=== PATIENT | male | born 1960 | race Caucasian/White ===

== ENCOUNTER 2017-09-08 23:38 | Inpatient (IN) | payer OTHER ==
[~2017-09-08] VITALS: Ht 190.5 cm; Wt 148.7 kg
[~2017-09-08 23:38] MED LIST: CIPR1TAB10 PO; HYDR-5688 PO; METR-163 PO; MULT-506 PO; PRLSR20 PO
[2017-09-08] MEDS ORDERED: ONDANSETRON INJ 2 MG/ML 2 ML VIAL IV STA (23:53)
[2017-09-08] MEDS ORDERED: MoRPHine SULFATE 4 MG/ML 1 ML CARP\\VIAL IV STA (23:53)
[2017-09-09] VITALS (9 sets, daily range): BP systolic 114–142; BP diastolic 72–82; PULSE 52–77; TEMP 36.3–36.7; O2SAT 94–97; Ht 190.5 cm; Wt 148.7 kg
[2017-09-09] MEDS ORDERED: OPTIRAY 320 IV PRN (00:15)
[2017-09-09 00:33] LABS: BASO % 0.1 %; BASO ABS # 0.01 K/uL (0-0.2); COMPLETE YES; HEMATOCRIT 44.1 % (42-52); IG% 0.3 %; LYMPH % 38.8 %; LYMPH ABS # 2.71 K/uL (1.2-3.4); MEAN CELL VOLUME 89.5 fL (80-100); MEAN CORPUSCULAR HEMOGLOBIN 30.4 pg (25-34); MEAN PLATELET VOLUME 11.6 fL (7.4-10.4); MONO % 10.3 %; NEUT % 48.5 %; PLATELET COUNT 161 K/uL (130-400); RED BLOOD COUNT 4.93 M/uL (4.7-6.1); WHITE BLOOD COUNT 6.98 K/uL (4.8-10.8)
[2017-09-09] MEDS ORDERED: HYDROmorphone INJ 2 MG/ML SYR/VIAL IV STA (00:48)
[2017-09-09] MEDS ORDERED: HYDROmorphone INJ 1 MG/ML SYR ONE (00:48)
[2017-09-09 00:52] LABS: BUN/CREATININE RATIO 18.1 (10-20); CREATININE 0.87 mg/dl (0.60-1.40); POTASSIUM 3.7 mmol/L (3.5-5.1)
[2017-09-09] MEDS ORDERED: ONDANSETRON INJ 2 MG/ML 2 ML VIAL IV PRN ×2 (02:15→03:15)
[2017-09-09] MEDS ORDERED: HEPARIN SOD 5000 UNIT/0.5 ML CARP SQ SCH (02:15)
--- NOTE | 2017-09-09 02:28 | Surgery Consultation ---
Consultation Date of Consultation: Sep 09, 2017. Attending Physician: History of Present Illness pt is a 56 year old male who presents to ER for 8 hours acute abdominal pain with nausea, no vomiting, the pain located at umbilical area, pt had sigmoid colon resection for diverticulitis [place] [facility] [place], last 6 months pt develops incisional hernia, the hernia is getting bigger, today the hernia is not reducible, last BM yesterday morning, pt denies fever, no diarrhea, Past Medical/Surgical History Medical Problems: (1) Abdominal pain, left lower quadrant Status: Acute Social History Smoking Status: Never Smoker Smokeless Tobacco Use: No Alcohol Use: occasionally Drug Use: none Marital Status: Occupation Status: employed Allergies Coded Allergies: No Known Allergies (Unverified , 09/09/17) Home Medications Scheduled Multivitamin (Multivitamin), 1 TABLET PO DAILY Omeprazole (Prilosec), 20 MG PO DAILY Current Inpatient Medications Current Inpatient Medications Medications (Trade) Dose Ordered Sig/Ryder Route Start Time Stop Time Status Last Admin Dose Admin Ioversol (Optiray 320) 125 ml UD PRN IV 09/09/17 00:15 09/13/17 00:14 Review of Systems Constitutional: No fever, No chills, No sweats, No weight loss, No weakness, No fatigue, No problem reported Eyes: No worsening of vision, No eye pain, No redness, No discharge, No diplopia, No problem reported ENT: No hearing loss, No unusual epistaxis, No nasal symptoms, No sore throat, No tinnitus, No dental problems, No trouble swallowing, No problem reported Respiratory: No cough, No sputum, No wheezing, No shortness of breath, No dyspnea on exertion, No dyspnea at rest, No hemoptysis, No problem reported Cardiovascular: No chest pain, No orthopnea, No PND, No edema, No claudication , No palpitations, No problem reported Abdomen: + pain, + nausea, + problem reported (sigmoid colon resection) Genitourinary - Male: No hematuria, No dysuria, No urinary frequency, No urinary urgency, No urinary hesitancy, No urinary retention, No urinary incontinence, No penile discharge, No lesions, No impotence, No problem reported Neurologic: No memory loss, No paralysis, No weakness, No numbness/tingling, No vertigo, No balance problems, No problem reported Psychiatric: No depression symptoms, No anhedonism, No anxiety, No insomnia, No substance abuse, No problem reported Endocrine: No fatigue, No excessive thirst, No excessive urination, No problem reported Hematologic / Lymphatic: No abnormal bleeding/bruising, No clotting problems, No swollen lymph nodes, No night sweats, No problem reported Physical Exam Date Time Temp Pulse Resp B/P (MAP) Pulse Ox O2 Delivery O2 Flow Rate FiO2 09/08/17 23:45 36.5 60 20 136/91 96 Room Air General Appearance: WD/WN, no apparent distress Head: normocephalic Eyes: normal inspection ENT: normal ENT inspection Neck: supple, no JVD Respiratory/Chest: chest non-tender, lungs clear, normal breath sounds, no respiratory distress Cardiovascular: regular rate, rhythm, no edema, no gallop, no JVD, no murmur Abdomen/GI: normal bowel sounds, soft, no organomegaly, no pulsatile mass, + tenderness (the incisonal hernia located at umbilical area, tenderness, thin skin, the hernia size about 3x4cm, the hernia is not reducible,), + distended Extremities/Musculoskelatal: normal inspection, no calf tenderness, normal capillary refill Neurologic/Psych: no motor/sensory deficits, alert, normal mood/affect Skin: normal color, warm/dry, no rash Laboratory Results Last 24 Hours Test 09/09/17 00:29 Bedside Lactic Acid Venous 0.65 mmol/L Assessment & Plan CT Scan- incisional hernia with contain small bowel, with bowel obstruction. Assessment: pt is a 56 year old male who presents to ER with 8 hours acute abdominal pain with nausea, CT scan- incisional hernia with contain small bowel , and bowel obstruction, IMP: incarcerated incisional hernia Plan, I recommend to do open repair incarcerated incisional hernia, possible mesh, bowel resection, stoma, D/W benefits, risks and alternatives of the procedure, the risks- infection, bleeding, injury bowel, hernia recurrence, seroma.AR, DVT, pt understood, he agrees with the surgery, I answered all questions.
--- NOTE | 2017-09-09 02:41 | History and Physical ---
History & Physical Date & Time of Service: Sep 09, 2017 at 02:35 Chief Complaint: Stomach Pain Primary Care Physician: No Doctor, Assigned History of Present Illness Source: patient, clinic records, hospital records This is a 56 year old obese male with a PMH of recurrent diverticulitis s/p sigmoid anterior resection presents secondary to abdominal pain. As per patient he had developed a hernia around the umbilicus. He was to see Dr. Galvez, general surgery, as an outpatient to have this repaired, but due to scheduling issues never had this scheduled. He developed the abdominal pain acutely hours prior to arrival. He denies fevers/chills, denies nausea/vomiting. Abdominal pain persists even after narcotic pain medications. Social History Smoking Status: Never Smoker Smokeless Tobacco Use: No Alcohol Use: occasionally Drug Use: none Marital Status: Occupational Status: employed Multi-Drug Resistant Organisms History of MDRO: No Allergies Coded Allergies: No Known Allergies (Unverified , 09/09/17) Home Medications Scheduled Multivitamin (Multivitamin), 1 TABLET PO DAILY Omeprazole (Prilosec), 20 MG PO DAILY Review of Systems Constitutional: No fever, No chills, No weakness Respiratory: No cough, No sputum, No shortness of breath, No dyspnea on exertion Cardiovascular: No chest pain, No edema, No palpitations Abdomen: + pain, No nausea, No vomiting, No diarrhea, No constipation Genitourinary - Male: No hematuria, No dysuria, No urinary frequency, No urinary urgency Neurologic: No weakness, No balance problems Psychiatric: No depression symptoms, No anxiety, No insomnia Endocrine: No fatigue Hematologic / Lymphatic: No abnormal bleeding/bruising Integumentary: No rash Allergic / Immunologic: No environmental allergies, No seasonal allergies Physical Exam Vital Signs Date Time Temp Pulse Resp B/P (MAP) Pulse Ox O2 Delivery O2 Flow Rate FiO2 09/09/17 01:45 60 18 120/66 94 Room Air 09/08/17 23:45 36.5 60 20 136/91 96 Room Air General Appearance: no apparent distress, + obese Head: normocephalic, atraumatic Eyes: normal inspection ENT: hearing grossly normal Respiratory/Chest: chest non-tender, lungs clear, normal breath sounds, no respiratory distress, no accessory muscle use Cardiovascular: regular rate, rhythm, no edema, no murmur Abdomen/GI: non tender, + abnormal bowel sounds (diminished bowel sounds), + hernia (non-reducible and tender) Extremities/Musculoskelatal: normal inspection, no calf tenderness, normal capillary refill, no pedal edema, normal range of motion Neurologic/Psych: no motor/sensory deficits, alert, normal mood/affect Skin: normal color Lymphatic: no adenopathy Diagnostics Laboratory Results Results Past 24 Hours Test 09/09/17 00:29 Range/Units Bedside Lactic Acid Venous 0.65 0.90-1.70 mmol/L Diagnostic Radiology CT was performed in the ED, showing the hernia with small bowel contained within it and a small bowel obstruction. Impression Assessment and Plan This is a 56 year old obese male with a PMH of recurrent diverticulitis s/p sigmoid anterior resection presents secondary to abdominal pain Incisional Hernia non-reducible and tender NPO, IVFs, morphine PRN for pain, Zofran PRN for nausea continue PPI general surgery consulted plan for hernia repair in the OR DVT ppx SCDs FULL CODE VTE Prophylaxis VTE Risk Assessment Done? Y/N: Yes Risk Level: Moderate
[2017-09-09] MEDS ORDERED: PROPOFOL IV EMULSION 10 MG/ML 20 ML VIAL IV ONE (02:52)
[2017-09-09] MEDS ORDERED: LIDOCAINE HCL 2% 2 ML VIAL (20MG/ML) ONE (02:52)
[2017-09-09] MEDS ORDERED: MIDAZOLAM HCL 1 MG/ML 2ML VIAL ONE (02:53)
[2017-09-09] MEDS ORDERED: LIDOCAINE HCL 1% 20 ML VIAL ONE (02:53)
[2017-09-09] MEDS ORDERED: BACITRACIN OINT 15 GM TUBE ONE (02:53)
[2017-09-09] MEDS ORDERED: FENTANYL CITRATE INJ 50 MCG/1 ML 2 ML VIAL ONE ×2 (02:53→05:04)
[2017-09-09] MEDS ORDERED: BUPIVACAINE 0.5 % 5 MG/1 ML MPF 30ML VIAL ONE (02:54)
--- NOTE | 2017-09-09 03:00 | EMERGENCY ROOM VISIT NOTE ---
History First contact with patient: 23:42 Chief Complaint: ABDOMINAL PAIN Stated Complaint: STOMACH PAIN Nursing Triage Summary: mid abdominal pain r/t hernia History of Present Illness The patient is a 56 year old male who presents to the Emergency Room with complaints of nausea with periumbilical pain for the past several hours. Patient has a hernia to this area. He's had bowel resection secondary to diverticulitis. He describes the pain as throbbing, ranging in severity 8 out of 10. Nothing makes it better or worse. It does not radiate. Last bowel movement was lunchtime. Patient denies chest pain, dyspnea, fever, chills, vomiting, diarrhea, back pain, urinary symptoms. No history of similar symptoms in the past. Review of Systems See HPI for pertinent positives & negatives. A total of 10 systems reviewed and were otherwise negative. Past Medical/Surgical History Medical Problems: (1) Diverticulitis (2) SBO (small bowel obstruction) (3) Umbilical hernia Surgical Problems: (1) Giant Cell Tumor Tendon (2) Status post rotator cuff repair Bowel resection Social History Smoking Status: Never Smoker Smokeless Tobacco Use: No Alcohol Use: occasionally Drug Use: none Marital Status: Occupation Status: employed Current/Historical Medications Scheduled Multivitamin (Multivitamin), 1 TABLET PO DAILY Omeprazole (Prilosec), 20 MG PO DAILY Allergies Coded Allergies: No Known Allergies (Unverified , 09/09/17) Physical Exam Vital Signs Date Time Temp Pulse Resp B/P (MAP) Pulse Ox O2 Delivery O2 Flow Rate FiO2 09/09/17 01:45 60 18 120/66 94 Room Air 09/08/17 23:45 36.5 60 20 136/91 96 Room Air Physical Exam VITALS: Vitals are noted on the nurse's note and reviewed by myself. Vital signs stable. GENERAL: White male in obvious pain, in no acute distress, nondiaphoretic, well- developed well-nourished. SKIN: The skin was without rashes, erythema, edema, or bruising. There is no tenting of the skin. Capillary reflex less than 2 seconds. HEAD: Normocephalic atraumatic. EARS: External auditory canals clear EYES: Pupils equal round and reactive to light and accommodation. Conjunctivae without injection, sclerae without icterus. Extraocular movements intact. NOSE: Patent, turbinates without inflammation or discharge. MOUTH: Mucous membranes moist. Pharynx without erythema or exudate. Uvula midline. Airway patent. Tongue does not deviate. NECK: Supple without nuchal rigidity. No lymphadenopathy. No thyromegaly. Cervical spine is nontender. No JVD. HEART: Regular rate and rhythm LUNGS: Clear to auscultation bilaterally without wheezes, rales or rhonchi. No dullness to percussion. No retractions or accessory muscle use. ABDOMEN: Positive bowel sounds x 4. Normal tympanic percussion. Soft, protuberant, obese, tender to palpation over umbilicus and unable to reduce the hernia, without masses or organomegaly. Soler sign negative. No guarding or rebound tenderness. No CVA tenderness MUSCULOSKELETAL: No muscle atrophy, erythema, noted. NEURO: Patient was alert and oriented to person place and time. Normal sensation to light and sharp touch. No focal neurological deficits. Medical Decision & Procedures Laboratory Results 09/08/17 00:20 Red Blood Count 4.93, Mean Corpuscular Volume 89.5, Mean Corpuscular Hemoglobin 30.4, Mean Corpuscular Hemoglobin Concent 34.0, Mean Platelet Volume 11.6, Neutrophils (%) (Auto) 48.5, Lymphocytes (%) (Auto) 38.8, Monocytes (%) (Auto) 10.3, Eosinophils (%) (Auto) 2.0, Basophils (%) (Auto) 0.1, Neutrophils # (Auto ) 3.38, Lymphocytes # (Auto) 2.71, Monocytes # (Auto) 0.72, Eosinophils # (Auto ) 0.14, Basophils # (Auto) 0.01 09/08/17 00:20 Test 09/08/17 00:20 09/09/17 00:29 White Blood Count 6.98 K/uL (4.8-10.8) Red Blood Count 4.93 M/uL (4.7-6.1) Hemoglobin 15.0 g/dL (14.0-18.0) Hematocrit 44.1 % (42-52) Mean Corpuscular Volume 89.5 fL (80-100) Mean Corpuscular Hemoglobin 30.4 pg (25-34) Mean Corpuscular Hemoglobin Concent 34.0 g/dl (32-36) Platelet Count 161 K/uL (130-400) Mean Platelet Volume 11.6 fL (7.4-10.4) Neutrophils (%) (Auto) 48.5 % Lymphocytes (%) (Auto) 38.8 % Monocytes (%) (Auto) 10.3 % Eosinophils (%) (Auto) 2.0 % Basophils (%) (Auto) 0.1 % Neutrophils # (Auto) 3.38 K/uL (1.4-6.5) Lymphocytes # (Auto) 2.71 K/uL (1.2-3.4) Monocytes # (Auto) 0.72 K/uL (0.11-0.59) Eosinophils # (Auto) 0.14 K/uL (0-0.5) Basophils # (Auto) 0.01 K/uL (0-0.2) RDW Standard Deviation 41.6 fL (36.4-46.3) RDW Coefficient of Variation 12.9 % (11.5-14.5) Immature Granulocyte % (Auto) 0.3 % Immature Granulocyte # (Auto) 0.02 K/uL (0.00-0.02) Anion Gap 7.0 mmol/L (3-11) Est Creatinine Clear Calc Drug Dose 151.3 ml/min Estimated GFR () 113.4 Estimated GFR (Non- 97.8 BUN/Creatinine Ratio 18.1 (10-20) Calcium Level 9.0 mg/dl (8.5-10.1) Total Bilirubin 0.6 mg/dl (0.2-1) Direct Bilirubin 0.1 mg/dl (0-0.2) Aspartate Amino Transf (AST/SGOT) 26 U/L (15-37) Alanine Aminotransferase (ALT/SGPT) 46 U/L (12-78) Alkaline Phosphatase 76 U/L (45-117) Total Protein 7.8 gm/dl (6.4-8.2) Albumin 3.8 gm/dl (3.4-5.0) Bedside Lactic Acid Venous 0.65 mmol/L (0.90-1.70) Medications Administered Medications (Trade) Dose Ordered Sig/Ryder Route Start Time Stop Time Status Last Admin Dose Admin Morphine Sulfate (MoRPHine SULFATE INJ) 4 mg NOW STAT IV 09/08/17 23:53 09/09/17 00:02 DC 09/09/17 00:17 4 MG Ondansetron HCl (Zofran Inj) 4 mg NOW STAT IV 09/08/17 23:53 09/09/17 00:02 DC 09/09/17 00:17 4 MG Hydromorphone HCl (Dilaudid Inj) 1 mg STK-MED ONCE .ROUTE 09/09/17 00:48 09/09/17 00:49 DC 09/09/17 00:50 1 MG ED Course Prior records/ancillary studies reviewed. Triage Nursing notes reviewed. The patient's history was concerning for abdominal pain. Differential diagnosis: Etiologies such as strangulated hernia, incarcerated hernia, umbilical hernia, incisional hernia, appendicitis, diverticulitis, PUD, biliary pathology, UTI, pancreatitis, obstruction, mesenteric ischemia, aortic pathology, infections, inflammatory bowel disease, renal colic, as well as others were entertained. Physical examination findings: As above. ER treatment provided: Morphine, Dilaudid, Zofran On reassessment the patient felt better. Diagnostics interpreted by me: The labs revealed stable H&H. Negative lactic acid Imaging studies: CT ABDOMEN & PELVIS With Contrast: Comparison: CT abdomen and pelvis 07/27/13. Moderate sized periumbilical hernia containing a short segment of distal small bowel. There is focal mild dilatation of the upstream small bowel with fecalization of the contents, and relative decompression of distal small bowel. Small bowel is otherwise normal caliber. Differential includes chronic stasis or low-grade small bowel obstruction. No free air. Minimal free fluid in the pelvis. Anastomotic sutures in the sigmoid colon. Small right renal cyst. Liver, gallbladder, pancreas, spleen, and adrenals are unremarkable. Prostate is enlarged. Small hiatal hernia. Bilateral pars defects of L5 with anterolisthesis of L5 on S1. Radiologist: Steven Stern MD Consultation: A consultation was placed with the surgeon Dr. Galvez and will evaluate the patient and taken to the OR for incarcerated hernia. Dr. Esqueda was consulted and will admit the patient medically per Dr Bacon request. The case was discussed and diagnostics were reviewed. The patient was evaluated in the ER for further treatment. Exam and history seem consistent with bowel obstruction secondary to incarcerated hernia. Patient will be taken to the OR by the surgeon. He was placed nothing by mouth. His pain was managed. Dr. Galvez requested that medicine admit the patient. Medicine was then paged for admission. Please see their dictations for further information regarding the treatment plan. Patient had a negative lactic acid. No leukocytosis. Stable H&H. By the evaluation outlined above emergent etiologies such as appendicitis, diverticulitis, PUD, biliary pathology, UTI, pancreatitis, mesenteric ischemia , aortic pathology, infections, inflammatory bowel disease, renal colic, as well as others were deemed relatively unlikely. The pt informed about the findings as listed above. All questions were answered and pleased with the treatment. case reviewed with my Attending. Medical Decision As above Impression Primary Impression: Incarcerated incisional hernia Departure Information Dispostion Being Evaluated By Surgeon Condition FAIR Referrals No Doctor, Assigned (PCP) Patient Instructions [facility]
[2017-09-09] MEDS ORDERED: HYDROmorphone INJ 2 MG/ML SYR/VIAL IV PRN (03:15)
[2017-09-09] MEDS ORDERED: EpHEDrine SULFATE INJ 50 MG/ML AMP IV PRN (03:15)
[2017-09-09] MEDS ORDERED: PHENYLEPHRINE 100MCG/ML 5ML SYR IV PRN (03:15)
[2017-09-09] MEDS ORDERED: ATROPINE SULFATE 0.1 MG/ML 5ML SYR IV PRN (03:15)
--- NOTE | 2017-09-09 03:45 | History & Physical Bridge Note ---
H&P Re-Evaluation Bridge Note: I have examined the patient, reviewed the History & Physical and in the interval since the performance of the History & Physical I have noted the following changes of clinical significance: No changes noted
[2017-09-09] MEDS ORDERED: CEFAZOLIN SOD 2000MG/10 ML IV PUSH IV ONE (04:00)
[2017-09-09] MEDS ORDERED: EpHEDrine SULFATE 50MG/5ML SYR ONE (04:29)
[2017-09-09] MEDS ORDERED: ROCURONIUM BROMIDE 10 MG/ML 5 ML VIAL IV ONE (04:30)
--- NOTE | 2017-09-09 05:24 | [facility] Post Operative Brief Note ---
Immediate Operative Summary Operative Date Sep 09, 2017. Pre-Operative Diagnosis Incarcerated incisional hernia Post-Operative Diagnosis Incarcerated incisional hernia Procedure(s) Performed Open Incisional Hernia Repair with Mesh Surgeon Dr. Galvez Cnc Wood Lathe Operator Surgeon(s) instructor adjunct surgical technician Estimated Blood Loss 10ml Findings incarcerated incisional hernia Fluids (cc crystalloids) 1400ml Specimens A: Incisional Hernia Sac Drains none Anesthesia general Complication(s) None Disposition Recovery Room / PACU
--- NOTE | 2017-09-09 05:45 | Anesthesiology Progress Note ---
Anesthesia Post Op Note Date & Time Sep 09, 2017 at 05:45 Vital Signs Pain Intensity: 5.0 Vital Signs Past 12 Hours Date Time Temp Pulse Resp B/P (MAP) Pulse Ox O2 Delivery O2 Flow Rate FiO2 09/09/17 03:03 50 14 125/74 95 Room Air 09/09/17 01:45 60 18 120/66 94 Room Air 09/08/17 23:45 36.5 60 20 136/91 96 Room Air Notes Mental Status: alert / awake / arousable, participated in evaluation Pt Amnestic to Procedure: Yes Nausea / Vomiting: adequately controlled Pain: adequately controlled Airway Patency, RR, SpO2: stable & adequate BP & HR: stable & adequate Hydration State: stable & adequate Anesthetic Complications: no major complications apparent
[2017-09-09] MEDS ORDERED: SODIUM CHLORIDE 0.9% 1000ML 1,000 ML IV SCH (06:30)
--- NOTE | 2017-09-09 06:56 | DIAGNOSTIC IMAGING REPORT ---
ABD/PELVIS IV CONTRAST ONLY CT DOSE: 2086.56 mGy.cm HISTORY: Pain severe periumbilcal pain with hernia, ? incarcerated TECHNIQUE: Multiaxial CT images of the abdomen and pelvis were performed following the use of intravenous contrast. A dose lowering technique was utilized adhering to the principles of ALARA. COMPARISON STUDY: 12/23/2015 FINDINGS: Lung bases are clear. Liver spleen and pancreas are uniform. Kidneys are negative for hydronephrosis. There is a periumbilical hernia containing a containing loop of bowel. This is a maximum transaxial dimension of 4.5 cm. There is no significant wall thickening pneumatosis or significant obstructive characteristics. There is stretching minimal reactive ileus. Abdominal aorta is normal in course and caliber. Bladder is midline. There is no free fluid within the pelvic cul-de-sac. IMPRESSION: 1. Periumbilical hernia containing a short segment loop of bowel 2. Maximum transaxial dimension is 4.5 cm. 3. No evidence for obstructive characteristics. 4. Mild nonobstructive reactive ileus. The above report was generated using voice recognition software. It may contain grammatical, syntax or spelling errors. Electronically signed by: Imtiaz Chase M.D. 09/09/2017 6:55 AM Dictated Date/Time: 09/09/2017 6:48 AM
[2017-09-09] MEDS: MoRPHine SULFATE 2 MG/ML CARP IV PRN ×2 (07:43→13:56)
[2017-09-09] MEDS ORDERED: PANTOprazole SOD 40 MG TAB PO SCH (09:00)
--- NOTE | 2017-09-09 10:16 | OPERATIVE REPORT ---
DATE OF OPERATION: 09/09/2017 PREOPERATIVE DIAGNOSIS: Incarcerated incisional hernia. POSTOPERATIVE DIAGNOSIS: Same. OPERATION: Open repair incarcerated incisional hernia with mesh. SURGEON: Beatriz Galvez MD. ANESTHESIA: General. ESTIMATED BLOOD LOSS: About 10 mL. IV FLUIDS: 1400 mL. FINDINGS: Incarcerated incisional hernia. COMPLICATIONS: None. INDICATIONS FOR THE PROCEDURE: This is a 56-year-old gentleman who presented to the ED with 8 hours of acute abdominal pain and the patient had a sigmoid colon resection for diverticulitis in the past, now the patient developed incarcerated incisional hernia. The patient had a CT scan, conforming the diagnosis. We decided to take the patient to the OR to open repair of incarcerated incisional hernia, possible with a mesh, possible bowel resection and stoma. I did talk to the patient about the benefit, risk and alternate procedure. I indicated the risks may include, but not limited such as bleeding, infection, injury to bowel, hernia recurrence, mesh related complications, DVT, and myocardial infarction. The patient understands. He signed informed consent and I answered all questions. DETAILS OF PROCEDURE: We brought the patient to the OR and put the patient in the supine position. The patient received SCD on bilateral legs to prevent DVT. Also, the patient received 2 grams Ancef IV for prophylactic antibiotic. The patient received insertion of Fuchs catheter after general anesthesia intubation and then, the patient's abdomen was prepped and draped in routine sterile fashion. After timeout, I made an incision just below the umbilical and mobilized the hernia sac and we completely removed the hernia sac contents. Small bowel back to the abdominal cavity and the hernia neck size of about 2 x 3 cm. We removed the hernia sac and then I used a 6.4 x 6.4 cm mesh to close the hernia. I used a #1 Ethibond suture to the mesh at 3 to 5 o'clock and one to 3 o'clock, one to 11 to 9 o'clock and 9 to 7 o'clock and 7 to 5 o'clock. All sutures tied and the mesh was set nicely without tension and I used a 2-0 Vicryl to close the fascial layer interruptedly. Then, we used a 2-0 Vicryl to reattach the umbilicus back to the original normal location and then I used 2-0 Vicryl to close subcutaneous layer interruptedly and I used 4-0 Vicryl to close skin continuous running and we put a dressing on. The patient tolerated the procedure well. All instrument, needle and sponge count correct x2 at the end of case and I removed the Fuchs catheter. The patient extubated in the OR and transferred to recovery room in stable condition. I attest to the content of the Intraoperative Record and any orders documented therein. Any exceptions are noted below. JANA
--- NOTE | 2017-09-09 12:26 | Discharge Instructions ---
Discharge Instructions Date of Service Sep 09, 2017. Admission Reason for Admission: Sbo, Umbilical Hernia Discharge Discharge Diagnosis / Problem: Incarcerated incisional hernia Discharge Goals Goal(s): Decrease discomfort, Improve function Activity Recommendations Activity Limitations: as noted below No heavy lifting over 10 pounds for 4 weeks No strenuous activity until cleared by surgeon No submerging incision underwater for 2 weeks (no bathing, swimming, or hot tubs ) No driving while taking narcotic pain medication or until you are pain free . Instructions / Follow-Up Instructions / Follow-Up You may shower in 4 days, sponge bath and wash hair in meantime. Try to keep dressing clean and dry Keep steri strips on incision for 7 days and then remove. They may fall off on their own that is okay Walking and light activity is encouraged You will be given prescription for Percocet as needed for pain . You may take extra strength Ibuprofen in between Percocet as needed for pain. Do not take Tylenol in between Percocet doses as Percocet has Tylenol in it Follow-up in surgical office in 1 week , please call office at [phone] to make an appointment You may need to take OTC stool softener (such as Colace) if you develop constipation to prevent any straining Current Hospital Diet Patient's current hospital diet: Regular Diet Discharge Diet Recommended Diet: Regular Diet Procedures Procedures Performed: Open Incisional Hernia Repair with Mesh Pending Studies Studies pending at discharge: no Medical Emergencies . Who to Call and When: Medical Emergencies: If at any time you feel your situation is an emergency, please call 911 immediately. . Non-Emergent Contact Non-Emergency issues call your: Primary Care Provider, Surgeon Call Non-Emergent contact if: you have a fever, temperature is above 101, your pain is not controlled, your pain is worsening, your pain is unusual for you, wound has increased drainage, wound has increased redness, wound has increased pain . "Provider Documentation" section prepared by Yuni Orona. . VTE Core Measure Inpt VTE Proph given/why not?: SCD's [place] Drug Monitoring Program Search Results: patient reviewed within database, no issues identified
[2017-09-09] MEDS ORDERED: OXYC-57 PO (12:30)
--- NOTE | 2017-09-09 13:37 | Progress Note ---
Medicine Progress Note Date & Time of Visit: Sep 09, 2017 at 13:37 . Subjective Doing well postoperatively. No chest pain. No cough or dyspnea. No nausea or vomiting. Postop pain well-controlled. . Objective Last 8 Hrs Date Time Temp Pulse Resp B/P (MAP) Pulse Ox O2 Delivery O2 Flow Rate FiO2 09/09/17 11:34 36.7 60 16 128/74 (92) 94 Room Air 09/09/17 10:01 94 Room Air 09/09/17 09:15 36.5 60 20 133/78 (96) 94 Room Air 09/09/17 08:21 36.5 52 16 114/72 (86) 95 Room Air 09/09/17 07:35 Room Air 09/09/17 07:11 36.3 60 19 136/82 (100) 95 Room Air 09/09/17 06:44 36.3 77 16 142/80 (100) 97 Oxymask 2.0 09/09/17 06:23 36.4 65 14 127/81 97 Mask 2.0 09/09/17 06:19 96 Oxymask 2.0 09/09/17 06:05 79 14 137/75 98 Oxymask 2 09/09/17 05:55 36.3 76 12 131/76 97 Oxymask 2 09/09/17 05:45 69 12 140/79 99 Oxymask 4 Physical Exam: General- no distress Lungs- clear Heart- RRR Abdomen- incision bandaged; soft, nontender Extremities- no edema or calf tenderness Neuro- alert . Laboratory Results: Last 24 Hours Test 09/09/17 00:20 09/09/17 00:29 Hepatitis C Antibody Screen NEG Bedside Lactic Acid Venous 0.65 mmol/L Assessment & Plan INCARCERATED INCISIONAL HERNIA Repair performed by Dr. Galvez. VTE PROPHYLAXIS Low risk for VTE. Prophylaxis not indicated. Ambulating. DISPOSITION Discharged to home. Surgical follow-up with Dr. Galvez. Was followed by Dr. Richter for Family Medicine; needs to establish with new PCP. . Current Inpatient Medications: Current Inpatient Medications Medications (Trade) Dose Ordered Sig/Ryder Route Start Time Stop Time Status Last Admin Dose Admin Ioversol (Optiray 320) 125 ml UD PRN IV 09/09/17 00:15 09/13/17 00:14 Pantoprazole Sodium (Protonix Tab) 40 mg DAILY PO 09/09/17 09:00 10/09/17 08:59 09/09/17 08:58 40 MG Ondansetron HCl (Zofran Inj) 4 mg Q6H PRN IV 09/09/17 02:15 10/09/17 02:14 Morphine Sulfate (MoRPHine SULFATE INJ) 2 mg Q4 PRN IV 09/09/17 02:15 09/23/17 02:14 09/09/17 07:43 2 MG Sodium Chloride 1,000 ml @ 100 mls/hr Q10H IV 09/09/17 06:30 10/09/17 06:29 09/09/17 09:00 100 MLS/HR
--- NOTE | 2017-09-09 13:49 | Surgery Progress Note ---
Surgery Progress Note Date of Service Sep 09, 2017. Subjective Post OP Day: POD # 0 s/p incarcerated incisional hernia repair with mesh + feeling well, + pain controlled, No SOB, No flatus, No nausea, No vomiting Objective Vital Signs: Date Time Temp Pulse Resp B/P (MAP) Pulse Ox O2 Delivery O2 Flow Rate FiO2 09/09/17 11:34 36.7 60 16 128/74 (92) 94 Room Air 09/09/17 10:01 94 Room Air 09/09/17 09:15 36.5 60 20 133/78 (96) 94 Room Air 09/09/17 08:21 36.5 52 16 114/72 (86) 95 Room Air 09/09/17 07:35 Room Air 09/09/17 07:11 36.3 60 19 136/82 (100) 95 Room Air 09/09/17 06:44 36.3 77 16 142/80 (100) 97 Oxymask 2.0 09/09/17 06:23 36.4 65 14 127/81 97 Mask 2.0 09/09/17 06:19 96 Oxymask 2.0 09/09/17 06:05 79 14 137/75 98 Oxymask 2 09/09/17 05:55 36.3 76 12 131/76 97 Oxymask 2 09/09/17 05:45 69 12 140/79 99 Oxymask 4 09/09/17 05:35 36.4 76 12 150/92 100 Oxymask 10 09/09/17 03:03 50 14 125/74 95 Room Air 09/09/17 01:45 60 18 120/66 94 Room Air 09/08/17 23:45 36.5 60 20 136/91 96 Room Air General Appearance: WD/WN, no apparent distress Head: normocephalic, atraumatic Neck: trachea midline Respiratory/Chest: no respiratory distress, no accessory muscle use Abdomen: soft, + tenderness Incision(s): clean, dry (dressing clean and dry) Laboratory Results: Results Past 24 Hours Test 09/09/17 00:20 09/09/17 00:29 Range/Units Hepatitis C Antibody Screen NEG NEG Bedside Lactic Acid Venous 0.65 0.90-1.70 mmol/L Assessment & Plan POD # 0 s/p incarcerated incisional hernia repair with mesh -vitals stable, afebrile - no nausea or vomiting - tolerating regular diet - pain controlled Plan: Okay from surgical standpoint for discharge today Discharge instructions reviewed with patient Rx for Percocet will be given as needed for pain Follow-up in surgical office in [address] Galvez has seen patient, agrees with above
--- NOTE | 2017-09-10 08:47 | Discharge Summary ---
Discharge Summary Date of Service Sep 10, 2017. Discharge Summary Admission Date: Sep 09, 2017 at 02:10 Discharge Date: Sep 09, 2017 Discharge Disposition: Home Principal Diagnosis: incarcerated incisional hernia . Procedures: open repair incarcerated incisional hernia with mesh by Dr. Galvez 09/09/17 . Consultations: General Surgery with Dr. Galvez . Medication Reconciliation New Medications: Oxycodone/Acetaminophen 5MG/325MG (Percocet 5MG/325MG) Tab 1 TABLET PO Q4H PRN for Pain, #18 TAB Continued Medications: Multivitamin (Multivitamin) Tab 1 TABLET PO DAILY, TAB Omeprazole (Prilosec) 20 Mg Capcr 20 MG PO DAILY, CAP Admission Information HPI (per Admitting provider): This is a 56 year old obese male with a PMH of recurrent diverticulitis s/p sigmoid anterior resection presents secondary to abdominal pain. As per patient he had developed a hernia around the umbilicus. He was to see Dr. Galvez, general surgery, as an outpatient to have this repaired, but due to scheduling issues never had this scheduled. He developed the abdominal pain acutely hours prior to arrival. He denies fevers/chills, denies nausea/vomiting. Abdominal pain persists even after narcotic pain medications. . Physical Exam (per Admitting): General Appearance: no apparent distress, + obese Head: normocephalic, atraumatic Eyes: normal inspection ENT: hearing grossly normal Respiratory/Chest: chest non-tender, lungs clear, normal breath sounds, no respiratory distress, no accessory muscle use Cardiovascular: regular rate, rhythm, no edema, no murmur Abdomen/GI: non tender, + abnormal bowel sounds (diminished bowel sounds), + hernia (non-reducible and tender) Extremities/Musculoskelatal: normal inspection, no calf tenderness, normal capillary refill, no pedal edema, normal range of motion Neurologic/Psych: no motor/sensory deficits, alert, normal mood/affect Skin: normal color Lymphatic: no adenopathy Hospital Course INCARCERATED INCISIONAL HERNIA Repair performed by Dr. Galvez. VTE PROPHYLAXIS Low risk for VTE. Prophylaxis not indicated. Ambulating. DISPOSITION Discharged to home. Surgical follow-up with Dr. Galvez. Was followed by Dr. Richter for Family Medicine; needs to establish with new PCP. . Discharge Instructions Date of Service Sep 09, 2017. Admission Reason for Admission: Sbo, Umbilical Hernia Discharge Discharge Diagnosis / Problem: Incarcerated incisional hernia Discharge Goals Goal(s): Decrease discomfort, Improve function Activity Recommendations Activity Limitations: as noted below No heavy lifting over 10 pounds for 4 weeks No strenuous activity until cleared by surgeon No submerging incision underwater for 2 weeks (no bathing, swimming, or hot tubs ) No driving while taking narcotic pain medication or until you are pain free . Instructions / Follow-Up Instructions / Follow-Up You may shower in 4 days, sponge bath and wash hair in meantime. Try to keep dressing clean and dry Keep steri strips on incision for 7 days and then remove. They may fall off on their own that is okay Walking and light activity is encouraged You will be given prescription for Percocet as needed for pain . You may take extra strength Ibuprofen in between Percocet as needed for pain. Do not take Tylenol in between Percocet doses as Percocet has Tylenol in it Follow-up in surgical office in 1 week , please call office at [phone] to make an appointment You may need to take OTC stool softener (such as Colace) if you develop constipation to prevent any straining Current Hospital Diet Patient's current hospital diet: Regular Diet Discharge Diet Recommended Diet: Regular Diet Procedures Procedures Performed: Open Incisional Hernia Repair with Mesh Pending Studies Studies pending at discharge: no Medical Emergencies . Who to Call and When: Medical Emergencies: If at any time you feel your situation is an emergency, please call 911 immediately. . Non-Emergent Contact Non-Emergency issues call your: Primary Care Provider, Surgeon Call Non-Emergent contact if: you have a fever, temperature is above 101, your pain is not controlled, your pain is worsening, your pain is unusual for you, wound has increased drainage, wound has increased redness, wound has increased pain . "Provider Documentation" section prepared by Yuni Orona. . VTE Core Measure Inpt VTE Proph given/why not?: SCD's [place] Drug Monitoring Program Search Results: patient reviewed within database, no issues identified . Additional Copies To Beatriz Galvez MD
== END 2017-09-09 14:53 | disposition home or self-care (01) | DRG 330 ==
LOC: C.EDB 23:39 → C.MSW 09-09 02:10 → ENRESERV 09-09 05:59
PROVIDERS: ADMIT Family Medicine; ATTEND Hospitalist
PROC: 0WUF0JZ Supplement Abdominal Wall with Synthetic Substitute, Open Approach (ICD-10-PCS; principal; 2017-09-09 02:41)
PROC: 0DS80ZZ Reposition Small Intestine, Open Approach (ICD-10-PCS; principal; 2017-09-09 02:41)
DX: K43.0 Incisional hernia with obstruction, without gangrene (principal); Z68.41 Body mass index [BMI] 40.0-44.9, adult; E66.01 Morbid (severe) obesity due to excess calories; K21.9 Gastro-esophageal reflux disease without esophagitis; Z87.19 Personal history of other diseases of the digestive system; Z90.49 Acquired absence of other specified parts of digestive tract

== ENCOUNTER 2017-09-14 21:30 | Inpatient (IN) | payer OTHER ==
[~2017-09-14] VITALS: Ht 190.5 cm; Wt 148.7 kg
[~2017-09-14 21:30] MED LIST changes: -CIPR1TAB10 PO; -HYDR-5688 PO; -METR-163 PO; +OXYC-57 PO
[2017-09-14] MEDS ORDERED: HYDROmorphone INJ 1 MG/ML SYR IV STA (21:55)
[2017-09-14] MEDS ORDERED: ONDANSETRON INJ 2 MG/ML 2 ML VIAL IV STA (21:55)
[2017-09-14 22:17] LABS: BASO % 0.1 %; BASO ABS # 0.01 K/uL (0-0.2); COMPLETE YES; EOS % 1.3 %; HEMATOCRIT 47.2 % (42-52); IG% 0.2 %; LYMPH % 19.4 %; LYMPH ABS # 1.82 K/uL (1.2-3.4); MEAN CELL VOLUME 89.7 fL (80-100); MEAN CORPUSCULAR HEMOGLOBIN 30.4 pg (25-34); MEAN CORPUSCULAR HGB CONC 33.9 g/dl (32-36); MEAN PLATELET VOLUME 11.6 fL (7.4-10.4); MONO % 6.5 %; NEUT % 72.5 %; PLATELET COUNT 196 K/uL (130-400); RED BLOOD COUNT 5.26 M/uL (4.7-6.1); WHITE BLOOD COUNT 9.38 K/uL (4.8-10.8)
[2017-09-14 22:34] LABS: ALT/SGPT 36 U/L (12-78); BLOOD UREA NITROGEN 14 mg/dl (7-18); BUN/CREATININE RATIO 13.4 (10-20); CALCIUM 10.2 mg/dl (8.5-10.1); CARBON DIOXIDE 29 mmol/L (21-32); CHLORIDE 100 mmol/L (98-107); CREATININE 1.07 mg/dl (0.60-1.40); GLUCOSE 128 mg/dl (70-99); POTASSIUM 3.8 mmol/L (3.5-5.1); SODIUM 136 mmol/L (136-145)
[2017-09-14 22:37] LABS: ALB/GLOB RATIO 0.8 (0.9-2); ALKALINE PHOSPHATASE 86 U/L (45-117); AST/SGOT 19 U/L (15-37)
--- NOTE | 2017-09-14 22:56 | DIAGNOSTIC IMAGING REPORT ---
ABDOMEN 2VIEW W/PA CHEST RTN CLINICAL HISTORY: 56 years-old Male presenting with abdominal pain, recent surgery. TECHNIQUE: PA view of the chest and supine and upright views of the abdomen were obtained. COMPARISON: Chest x-ray from 11/04/[address] of the abdomen and pelvis from 09/09/2017. FINDINGS: Cardiomediastinal silhouette normal. Mildly low lung volumes with vague bibasilar opacities. No large effusion or pneumothorax. Mild gaseous distention of several loops of small bowel in the midabdomen. No gross pneumoperitoneum. Moderate stool burden in the right colon. No calcifications to suggest nephrolithiasis. Osseous structures normal. IMPRESSION: 1. No acute cardiopulmonary disease. 2. Moderate stool burden in the right colon. No radiographic evidence of obstruction. Electronically signed by: Peter Leblanc M.D. 09/14/2017 10:55 PM Dictated Date/Time: 09/14/2017 10:52 PM
[2017-09-14] MEDS ORDERED: OPTIRAY 320 IV PRN (23:15)
[2017-09-15] VITALS (9 sets, daily range): BP systolic 116–133; BP diastolic 70–83; PULSE 50–86; TEMP 36.4–36.9; O2SAT 91–96; Ht 190.5 cm; Wt 148.7 kg
[2017-09-15] MEDS ORDERED: CEFOXITIN SOD 2 GM VIAL IV STA (01:07)
--- NOTE | 2017-09-15 01:15 | History and Physical ---
History & Physical Date Sep 15, 2017. Chief Complaint abdominal pain History of Present Illness The patient is a 56 year old male with complaints of 24-48 hrs of abd pain- initially aroun recent wound and now more diffuse. Had incarcerated umbilical hernia repair with mesh 09/09/17. CT shows fluid , gas w/n wound area- could be loop of bowel. Past Medical/Surgical History Medical Problems: (1) Diverticulitis (2) SBO (small bowel obstruction) (3) Umbilical hernia Surgical Problems: (1) Giant Cell Tumor Tendon (2) Status post rotator cuff repair Additional History Hepatic Disease: No Endocrine Disorder: No Kidney Disease: No Hypertension: No Heart Disease: No Allergies Coded Allergies: No Known Allergies (Unverified , 09/14/17) Home Medications Scheduled Multivitamin (Multivitamin), 1 TABLET PO DAILY Omeprazole (Prilosec), 20 MG PO DAILY Scheduled PRN Oxycodone/Acetaminophen 5MG/325MG (Percocet 5MG/325MG), 1 TABLET PO Q4H PRN for Pain Physical Examination Skin: warm/dry Eyes: sclerae normal Head: atraumatic Neck: supple Respiratory/Chest: no respiratory distress Cardiovascular: regular rate, rhythm Abdomen / GI: + pertinent finding (mild periincisional erythema, induration under incision, tender to palpation) Extremities: normal inspection Neurologic/Psych: alert Diagnosis possible loop of small bowel w/n recurrent hernia- incarcerated hernia Plan of Treatment abdominal wound exploration, possible bowel resection possible mesh removal, hernia repair
[2017-09-15] MEDS ORDERED: CEFOXITIN IV 2,000 MG in DEXTROSE 5% 50ML 50 ML IV STA (01:17)
[2017-09-15] MEDS ORDERED: ONDANSETRON INJ 2 MG/ML 2 ML VIAL IV PRN ×3 (01:30→03:45)
[2017-09-15] MEDS ORDERED: HYDROmorphone INJ 0.5 MG/0.5 ML SYR IV PRN ×2 (01:30→03:45)
[2017-09-15] MEDS ORDERED: HYDROmorphone INJ 1 MG/ML SYR IV PRN ×2 (01:30→03:45)
[2017-09-15 01:39] LABS: URINE APPEARANCE CLEAR (CLEAR); URINE BILIRUBIN NEG (NEG); URINE COLOR YELLOW; URINE NITRITE NEG (NEG); URINE SPECIFIC GRAVITY > 1.045 (1.000-1.030); UROBILINOGEN NEG (NEG); ZZUR CULT IF INDIC CLEAN CATCH NO
[2017-09-15 01:40] LABS: MANUAL MICROSCOPIC REQUIRED? NO; REVIEW REQ? NO
[2017-09-15] MEDS ORDERED: FENTANYL CITRATE INJ 50 MCG/1 ML 2 ML VIAL ONE (01:46)
[2017-09-15] MEDS ORDERED: CEFOXITIN SOD 1 GM VIAL ONE (01:49)
[2017-09-15] MEDS ORDERED: ATROPINE SULFATE 0.1 MG/ML 5ML SYR IV PRN (02:00)
[2017-09-15] MEDS ORDERED: FENTANYL CITRATE INJ 50 MCG/1 ML 2 ML VIAL IV PRN (02:00)
[2017-09-15] MEDS ORDERED: NALOXONE HCL 0.4 MG/1 ML VIAL/CARP IV PRN (02:00)
[2017-09-15] MEDS ORDERED: EpHEDrine SULFATE INJ 50 MG/ML AMP IV PRN (02:00)
[2017-09-15] MEDS ORDERED: MEPERIDINE HCL 25 MG/ML CARP IV PRN (02:00)
[2017-09-15] MEDS ORDERED: PHENYLEPHRINE 100MCG/ML 5ML SYR IV PRN (02:00)
[2017-09-15] MEDS ORDERED: HYDROmorphone INJ 2 MG/ML SYR/VIAL IV PRN (02:00)
[2017-09-15] MEDS ORDERED: LABETALOL HCL IV 5 MG/ML 20ML IV PRN (02:00)
[2017-09-15] MEDS ORDERED: FLUMAZENIL 0.1 MG/1 ML 10 ML VIAL IV PRN (02:00)
[2017-09-15] MEDS ORDERED: MIDAZOLAM HCL 1 MG/ML 2ML VIAL ONE (02:01)
[2017-09-15] MEDS ORDERED: PROPOFOL IV EMULSION 10 MG/ML 20 ML VIAL IV ONE (02:04)
[2017-09-15] MEDS ORDERED: SUCCINYLCHOLINE CHLORIDE 20 MG/ML 10 ML VIAL IV ONE (02:05)
[2017-09-15] MEDS ORDERED: LIDOCAINE HCL 2% 2 ML VIAL (20MG/ML) ONE (02:05)
[2017-09-15] MEDS ORDERED: BUPIVACAINE 0.5 % 5 MG/1 ML MPF 30ML VIAL ONE (02:58)
[2017-09-15] MEDS ORDERED: DEXAMETHASONE SOD INJ 4 MG/ML VIAL ONE (03:02)
[2017-09-15] MEDS ORDERED: ONDANSETRON INJ 2 MG/ML 2 ML VIAL ONE (03:04)
[2017-09-15] MEDS ORDERED: NEOSTIGMINE METHYLSULFATE 5 MG/5 ML SYR ONE (03:04)
[2017-09-15] MEDS ORDERED: GLYCOPYRROLATE INJ 0.2 MG/ML VIAL ONE (03:04)
[2017-09-15] MEDS ORDERED: ROCURONIUM BROMIDE 10 MG/ML 5 ML VIAL IV ONE (03:19)
[2017-09-15] MEDS ORDERED: LACTATED RINGER'S 1000ML 1,000 ML IV SCH (03:31)
--- NOTE | 2017-09-15 03:31 | [facility] Operative Report ---
Operative Report Operative Date Sep 15, 2017. Pre-Operative Diagnosis incarcerated umbilical hernia Post-Operative Diagnosis hematoma Procedure(s) Performed Abdominal wound exploration, evacuation hematoma, culture Surgeon Dr. Mor Arambula Estimated Blood Loss 20cc Findings wound hematoma and seroma Specimens Micro: 1. Abdominal wound (aerobic, anaerobic, gram stain) Drains # [address] [place] Complication(s) None Disposition Recovery Room / PACU I attest to the content of the Intraoperative Record and any orders documented therein. Any exceptions are noted below.
[2017-09-15] MEDS ORDERED: PROMETHAZINE HCL INJ 25 MG in SODIUM CHLORIDE 0.9% 50ML 50 ML IV PRN (03:45)
[2017-09-15] MEDS ORDERED: OXYCODONE/ACETAMINOPHEN 5-325 TAB PO PRN ×2 (03:45)
--- NOTE | 2017-09-15 03:50 | Anesthesiology Progress Note ---
Anesthesia Post Op Note Date & Time Sep 15, 2017 at 03:50 Vital Signs Pain Intensity: 2 Vital Signs Past 12 Hours Date Time Temp Pulse Resp B/P (MAP) Pulse Ox O2 Delivery O2 Flow Rate FiO2 09/15/17 01:19 70 20 141/71 95 Room Air 09/14/17 23:21 72 16 133/63 95 Room Air 09/14/17 21:39 36.3 74 18 136/89 95 Room Air Notes Mental Status: alert / awake / arousable, participated in evaluation Pt Amnestic to Procedure: Yes Nausea / Vomiting: adequately controlled Pain: adequately controlled, improving with treatment Airway Patency, RR, SpO2: stable & adequate BP & HR: stable & adequate Hydration State: stable & adequate Anesthetic Complications: no major complications apparent
--- NOTE | 2017-09-15 04:54 | EMERGENCY ROOM VISIT NOTE ---
History First contact with patient: 21:48 Chief Complaint: ABDOMINAL PAIN Stated Complaint: HERNIA - HAVING SEVERE PAIN IN STOMACH AREA Nursing Triage Summary: patient presents s/o incisional strangulated hernia repair on 09/09/17 patient stated that he has had constant pain and that it has worsened today after eating applesauce at 1800 Patient states he has a small amount of drainage from wound Wound edges are well approximated and healing, small open area noted near center of incision with red drainage noted States he has been moving his bowels regularly History of Present Illness The patient is a 56 year old male who presents to the Emergency Room with complaints of abdominal pain. The patient had an incarcerated hernia repaired one week ago. He has had some intermittent pain since discharge but states his pain worsened today. He states that he ate some applesauce before the onset of worsening pain. He states the pain is located throughout the entire abdomen. He has been having regular bowel movements, but did require Colace and magnesium citrate. Patient has a history of sigmoidectomy secondary to diverticulitis. He rates his overall discomfort a 10/10. He is nauseous, but denies vomiting. He denies any fevers/chills or urinary symptoms. Review of Systems A complete 10 point review of systems was reviewed with the patient with pertinent positives and negatives as per history of present illness. All else were negative. Past Medical/Surgical History Medical Problems: (1) Diverticulitis (2) Hematoma (3) SBO (small bowel obstruction) (4) Umbilical hernia Surgical Problems: (1) Giant Cell Tumor Tendon (2) Status post rotator cuff repair Social History Smoking Status: Never Smoker Alcohol Use: occasionally Drug Use: none Marital Status: Occupation Status: employed Current/Historical Medications Scheduled Multivitamin (Multivitamin), 1 TABLET PO DAILY Omeprazole (Prilosec), 20 MG PO DAILY Scheduled PRN Oxycodone/Acetaminophen 5MG/325MG (Percocet 5MG/325MG), 1 TABLET PO Q4H PRN for Pain Physical Exam Vital Signs Date Time Temp Pulse Resp B/P (MAP) Pulse Ox O2 Delivery O2 Flow Rate FiO2 09/15/17 04:25 80 16 135/74 94 Room Air 09/15/17 04:20 68 16 135/74 93 Room Air 09/15/17 04:15 70 16 136/78 97 Room Air 09/15/17 04:10 71 16 136/79 97 Oxymask 2 09/15/17 04:05 71 16 133/87 97 Oxymask 2 09/15/17 04:00 36.5 75 16 136/81 96 Oxymask 2 09/15/17 03:55 84 16 140/84 96 Oxymask 3 09/15/17 03:50 82 16 135/84 96 Oxymask 3 09/15/17 03:45 36.6 81 16 118/86 99 Oxymask 10 09/15/17 01:19 70 20 141/71 95 Room Air 09/14/17 23:21 72 16 133/63 95 Room Air 09/14/17 21:39 36.3 74 18 136/89 95 Room Air Physical Exam VITALS: Vitals are noted on the nurse's note and reviewed by myself. Vital signs stable. GENERAL: This is a 56-year-old male, in no acute distress, nondiaphoretic, well- developed well-nourished. SKIN: There is an incision over the umbilicus which is well healing area no evidence of infection. HEART: Regular rate and rhythm without murmurs gallops or rubs. LUNGS: Clear to auscultation bilaterally without wheezes, rales or rhonchi. ABDOMEN: Positive bowel sounds x 4. Diffuse tenderness to palpation. No guarding or rebound tenderness. NEURO: Patient was alert and oriented to person place and time. Medical Decision & Procedures ER Provider Diagnostic Interpretation: CT ABDOMEN & PELVIS WITH CONTRAST: The lack of enteric contrast limits evaluation. Findings compatible with interval hernia repair in the periumbilical region. In the subcutaneous fat in region of surgical change is a suspected fluid collection with internal emphysema which may represent seroma. Deep to hernia repair is some small bowel. At least some of the fluid seen in the periumbilical region had ventral abdominal wall appears upper from bowel although given lack of enteric contrast, difficult to exclude herniation of a portion of small bowel. There are small bowel segments which abut the mesh within the peritoneal cavity. Correlate with exam. Repeat examination with enteric contrast was likely clarify whether there is a portion of small bowel herniating through mesh region. A repeat exam is obtained, please ensure contrast passage through small bowel before rescanning. Tiny foci of emphysema and region of small bowel deep hernia repair. Difficult to exclude whether small foci of emphysema extraluminal or within the bowel. In any case, even if extraluminal, would be nonspecific given relative recent surgery. There is mild distention of small bowel with a pattern suggestive of ileus. No obstruction is suspected. Small amount of free fluid. Fluid throughout bowel including:. Unchanged incidental findings include evidence of sigmoidectomy, splenomegaly, low-density right renal lesion too small to characterize and L5 pars defect with anterolisthesis L5 on S1. Radiologist: Janusz Butts MD Laboratory Results 09/14/17 21:55 Red Blood Count 5.26, Mean Corpuscular Volume 89.7, Mean Corpuscular Hemoglobin 30.4, Mean Corpuscular Hemoglobin Concent 33.9, Mean Platelet Volume 11.6, Neutrophils (%) (Auto) 72.5, Lymphocytes (%) (Auto) 19.4, Monocytes (%) (Auto) 6.5, Eosinophils (%) (Auto) 1.3, Basophils (%) (Auto) 0.1, Neutrophils # (Auto) 6.80, Lymphocytes # (Auto) 1.82, Monocytes # (Auto) 0.61, Eosinophils # (Auto) 0.12, Basophils # (Auto) 0.01 09/14/17 21:55 Test 09/14/17 21:55 09/15/17 01:21 White Blood Count 9.38 K/uL (4.8-10.8) Red Blood Count 5.26 M/uL (4.7-6.1) Hemoglobin 16.0 g/dL (14.0-18.0) Hematocrit 47.2 % (42-52) Mean Corpuscular Volume 89.7 fL (80-100) Mean Corpuscular Hemoglobin 30.4 pg (25-34) Mean Corpuscular Hemoglobin Concent 33.9 g/dl (32-36) Platelet Count 196 K/uL (130-400) Mean Platelet Volume 11.6 fL (7.4-10.4) Neutrophils (%) (Auto) 72.5 % Lymphocytes (%) (Auto) 19.4 % Monocytes (%) (Auto) 6.5 % Eosinophils (%) (Auto) 1.3 % Basophils (%) (Auto) 0.1 % Neutrophils # (Auto) 6.80 K/uL (1.4-6.5) Lymphocytes # (Auto) 1.82 K/uL (1.2-3.4) Monocytes # (Auto) 0.61 K/uL (0.11-0.59) Eosinophils # (Auto) 0.12 K/uL (0-0.5) Basophils # (Auto) 0.01 K/uL (0-0.2) RDW Standard Deviation 41.4 fL (36.4-46.3) RDW Coefficient of Variation 12.6 % (11.5-14.5) Immature Granulocyte % (Auto) 0.2 % Immature Granulocyte # (Auto) 0.02 K/uL (0.00-0.02) Anion Gap 7.0 mmol/L (3-11) Estimated GFR () 90.7 Estimated GFR (Non- 78.3 BUN/Creatinine Ratio 13.4 (10-20) Calcium Level 10.2 mg/dl (8.5-10.1) Total Bilirubin 0.5 mg/dl (0.2-1) Aspartate Amino Transf (AST/SGOT) 19 U/L (15-37) Alanine Aminotransferase (ALT/SGPT) 36 U/L (12-78) Alkaline Phosphatase 86 U/L (45-117) Total Protein 9.2 gm/dl (6.4-8.2) Albumin 4.0 gm/dl (3.4-5.0) Globulin 5.2 gm/dl (2.5-4.0) Albumin/Globulin Ratio 0.8 (0.9-2) Lipase 117 U/L (73-393) Urine Color YELLOW Urine Appearance CLEAR (CLEAR) Urine pH 5.0 (4.5-7.5) Urine Specific [place] > 1.045 (1.000-1.030) Urine Protein NEG (NEG) Urine Glucose (UA) NEG (NEG) Urine Ketones NEG (NEG) Urine Occult Blood NEG (NEG) Urine Nitrite NEG (NEG) Urine Bilirubin NEG (NEG) Urine Urobilinogen NEG (NEG) Urine Leukocyte Esterase NEG (NEG) Medications Administered Medications (Trade) Dose Ordered Sig/Ryder Route Start Time Stop Time Status Last Admin Dose Admin Hydromorphone HCl (Dilaudid Inj) 1 mg NOW STAT IV 09/14/17 21:55 09/14/17 21:57 DC 09/14/17 22:07 1 MG Ondansetron HCl (Zofran Inj) 4 mg NOW STAT IV 09/14/17 21:55 09/14/17 21:57 DC 09/14/17 22:07 4 MG Cefoxitin Sodium 2000 mg/Dextrose 60 ml @ 120 mls/hr NOW STAT IV 09/15/17 01:17 09/15/17 01:46 DC 09/15/17 01:39 120 MLS/HR Cefoxitin Sodium (Mefoxin IV) 2,000 mg STK-MED ONCE .ROUTE 09/15/17 01:49 09/15/17 01:50 DC 09/15/17 03:26 2,000 MG Fentanyl Citrate (Fentanyl Inj) 25 mcg Q5M PRN IV 09/15/17 02:00 09/15/17 04:06 DC 09/15/17 03:48 25 MCG Bupivacaine HCl (Marcaine 0.5% MPF Inj) 30 ml STK-MED ONCE .ROUTE 09/15/17 02:58 09/15/17 02:59 DC 09/15/17 03:05 7 ML ED Course The patient was evaluated as above. Labs were drawn and IV access was obtained. Patient was medicated with 1 mg Dilaudid and [address] of the abdomen and pelvis was performed and read by bharath as above. Patient was reevaluated and stated he was feeling better. Case was discussed with Dr. Arambula of general surgery. He will evaluate the patient in the emergency department. Dr. Arambula will take the patient to the OR to explore the surgical wound. Medical Decision Differential diagnosis includes bowel obstruction, constipation, postoperative infection, ileus, seroma, among others. The patient is a 56-year-old male who presents today complaining of abdominal pain following a hernia repair which was performed last week. Labs revealed no leukocytosis. CT scan showed no evidence of bowel obstruction or abscess. There were some questionable findings which were reviewed with Dr. Arambula. Dr. Arambula reviewed the CT and evaluated the patient in the emergency department and chose to take the patient to the OR for surgical exploration. Please see his dictation for operative records and further course. The patient's case was reviewed with Dr. Dowd, ED attending physician, who agreed with my assessment and treatment plan. Medication Reconcilliation Current Medication List: was personally reviewed by me Blood Pressure Screening Patient's blood pressure: Normal blood pressure Impression Primary Impression: Postoperative abdominal pain Departure Information Dispostion Still a Patient Condition FAIR Referrals No Doctor, Assigned (PCP) Forms Call Back Authorization, HOME CARE DOCUMENTATION FORM, IMPORTANT VISIT INFORMATION Patient Instructions [facility]
--- NOTE | 2017-09-15 05:01 | OPERATIVE REPORT ---
DATE OF OPERATION: 09/15/2017 NAME OF OPERATION: Abdominal wound exploration with evacuation of hematoma and culture. PREOPERATIVE DIAGNOSIS: Incarcerated umbilical hernia. POSTOPERATIVE DIAGNOSIS: Hematoma with seroma. STAFF SURGEON: Mor Arambula MD ANESTHESIA: General. FINDINGS: The patient had undergone a prior umbilical hernia repair. He was having some drainage from the incision and also some martha-incisional erythema. Opening the wound, I encountered seroma and hematoma within the wound. The hernia repair was intact. There was no bowel incarcerated in the wound. PROCEDURE: The patient was brought into the operating room and placed on the operating table in a supine position. He did have some adhesive which was from the previous tape, which was removed. The area was then prepped and draped. We did remove some Dermabond prior to prepping. The incision was partially opened encountering seroma which was cultured. Then the entire incision was opened using a scalpel encountering some hematoma. The hematoma was debrided and then the area explored. There was no bowel incarcerated within the wound. The hernia repair appeared to be intact. The site was irrigated with Mefoxin saline irrigation and then a #15 round Miguel-Mojica drain was placed through a separate stab incision into the wound and secured to the skin using 3-0 nylon suture. At this point, the deep tissue was partially reapproximated using 2-0 plain catgut suture and then the umbilicus was reattached to the fascia using 2-0 chromic catgut suture. Then the skin was reapproximated using interrupted 4-0 nylon suture. Dressing was applied and the patient was transferred to recovery area in stable condition. Prior to closure , the skin edge of the umbilicus was debrided of some ischemic tissue. I attest to the content of the Intraoperative Record and any orders documented therein. Any exceptions are noted below. MTDD
[2017-09-15] MEDS: LACTATED RINGER'S 1000ML 1,000 ML IV SCH ×2 (05:08→18:26)
[2017-09-15] MEDS: CEFAZOLIN IV 1,000 MG in SYRINGE 0 ML IV SCH ×3 (05:48→18:26)
[2017-09-15] MEDS ORDERED: CEFAZOLIN IV 1,000 MG in DEXTROSE 5% 50ML 50 ML IV SCH ×4 (06:00)
--- NOTE | 2017-09-15 07:45 | DIAGNOSTIC IMAGING REPORT ---
ABDOMEN AND PELVIS CT WITH IV CONTRAST CT DOSE: 1403.10 mGycm HISTORY: postoperative mid abdominal pain, recent hernia repair TECHNIQUE: Multiaxial CT images of the abdomen and pelvis were performed following the use of intravenous contrast. A dose lowering technique was utilized adhering to the principles of ALARA. COMPARISON STUDY: Abdomen and pelvis CT 09/09/2017. FINDINGS: The lung bases are clear. Bilateral L5 spondylolysis. The liver, gallbladder, spleen, adrenal glands, pancreas, left kidney are unremarkable. Stable 8 mm hypodense lesion within the upper pole the right kidney. This is too small to characterize. No hydronephrosis. No retroperitoneal lymphadenopathy. Normal caliber abdominal aorta. Normal bladder. Anastomotic suture material at the distal sigmoid colon. Fluid-filled large and small bowel. Status post repair of the previously identified umbilical hernia. There is a 5.5 x 3.1 cm gas and fluid collection at the site of prior hernia repair within the subcutaneous fat. No evidence for recurrent hernia at this time. Deep to the hernia site within the abdominal cavity there is a 4.6 x 3.6 cm gas and fluid collection. This is difficult to characterize due to the lack of enteric contrast but may represent a small gas and fluid collection rather than a loop of bowel. There are fluid-filled loops of small bowel which are mildly distended within the pelvis. These measure up to 3.1 cm in diameter. Possible transition point at this suspected small gas and fluid collection deep to the hernia site. This transition point is best seen on image 317 of [id number]. Therefore, findings suggest a small bowel obstruction. IMPRESSION: 1. Status post repair of the periumbilical hernia. There is gas and fluid seen within the subcutaneous fat at the hernia site. This favors a postoperative seroma. However, a developing abscess or hematoma could also have a similar appearance. 2. Deep to the incision site there appears to be a second gas and fluid collection measuring 4.6 x 3.6 cm. This also favors a seroma. However, this is difficult to separate from the adjacent bowel due to the lack of enteric contrast and could represent a bowel loop. 3. There appears be a focal transition point within the adjacent small bowel at this suspected 4.6 x 3.6 cm fluid collection deep to the hernia repair. There are a few mildly distended and fluid-filled proximal loops of small bowel. Therefore, this is concerning for a small bowel obstruction. Follow-up study with oral contrast can be performed for further evaluation. Electronically signed by: Jovany Galarza M.D. 09/15/2017 7:44 AM Dictated Date/Time: 09/15/2017 7:32 AM
[2017-09-15] MEDS ORDERED: DOCUSATE SODIUM/SENNA 50/8.6MG TAB PO SCH (09:00)
[2017-09-15] MEDS: DOCUSATE SODIUM/SENNA 50/8.6MG TAB PO SCH ×2 (10:40→21:11)
[2017-09-15] MEDS ORDERED: NURSING VERBAL MED ORDER ONE (13:00)
--- NOTE | 2017-09-15 13:43 | Surgery Progress Note ---
Surgery Progress Note Date of Service Sep 15, 2017. Subjective Post OP Day: POD # 0 s/p abdominal wound exploration evacauation of hematoma and seroma Feeling better, still sore, controlled on pain medication tolerating diet- full liquids + heartburn, took Protonix this am (takes Prilosec at home) no nausea or vomiting Objective Vital Signs: Date Time Temp Pulse Resp B/P (MAP) Pulse Ox O2 Delivery O2 Flow Rate FiO2 09/15/17 12:38 36.9 78 16 126/83 (97) 94 Room Air 09/15/17 09:00 Room Air 09/15/17 07:47 36.9 64 16 118/72 (87) 93 Room Air 09/15/17 06:40 36.9 62 16 125/70 (88) 96 Room Air 09/15/17 05:40 36.7 75 16 126/75 (92) 93 Room Air 09/15/17 05:10 36.8 63 16 127/76 (93) 91 Room Air 09/15/17 04:40 Room Air 09/15/17 04:40 Room Air 09/15/17 04:40 36.8 72 16 120/73 (89) 93 Room Air 09/15/17 04:25 80 16 135/74 94 Room Air 09/15/17 04:20 68 16 135/74 93 Room Air 09/15/17 04:15 70 16 136/78 97 Room Air 09/15/17 04:10 71 16 136/79 97 Oxymask 2 09/15/17 04:05 71 16 133/87 97 Oxymask 2 09/15/17 04:00 36.5 75 16 136/81 96 Oxymask 2 09/15/17 03:55 84 16 140/84 96 Oxymask 3 09/15/17 03:50 82 16 135/84 96 Oxymask 3 09/15/17 03:45 36.6 81 16 118/86 99 Oxymask 10 09/15/17 01:19 70 20 141/71 95 Room Air 09/14/17 23:21 72 16 133/63 95 Room Air 09/14/17 21:39 36.3 74 18 136/89 95 Room Air Physical Exam: KARTHIKEYAN drainage (serosanguineous) General Appearance: WD/WN, no apparent distress, + obese Head: normocephalic, atraumatic Neck: trachea midline Respiratory/Chest: no respiratory distress, no accessory muscle use Abdomen: non distended, soft, + tenderness (appropriate post op) Incision(s): clean, dry (incision not inspected on POD #0) Extremities: normal inspection Laboratory Results: Results Past 24 Hours Test 09/14/17 21:55 09/15/17 01:21 Range/Units White Blood Count 9.38 4.8-10.8 K/uL Red Blood Count 5.26 4.7-6.1 M/uL Hemoglobin 16.0 14.0-18.0 g/dL Hematocrit 47.2 42-52 % Mean Corpuscular Volume 89.7 80-100 fL Mean Corpuscular Hemoglobin 30.4 25-34 pg Mean Corpuscular Hemoglobin Concent 33.9 32-36 g/dl Platelet Count 196 130-400 K/uL Mean Platelet Volume 11.6 7.4-10.4 fL Neutrophils (%) (Auto) 72.5 % Lymphocytes (%) (Auto) 19.4 % Monocytes (%) (Auto) 6.5 % Eosinophils (%) (Auto) 1.3 % Basophils (%) (Auto) 0.1 % Neutrophils # (Auto) 6.80 1.4-6.5 K/uL Lymphocytes # (Auto) 1.82 1.2-3.4 K/uL Monocytes # (Auto) 0.61 0.11-0.59 K/uL Eosinophils # (Auto) 0.12 0-0.5 K/uL Basophils # (Auto) 0.01 0-0.2 K/uL RDW Standard Deviation 41.4 36.4-46.3 fL RDW Coefficient of Variation 12.6 11.5-14.5 % Immature Granulocyte % (Auto) 0.2 % Immature Granulocyte # (Auto) 0.02 0.00-0.02 K/uL Sodium Level 136 136-145 mmol/L Potassium Level 3.8 3.5-5.1 mmol/L Chloride Level 100 98-107 mmol/L Carbon Dioxide Level 29 21-32 mmol/L Anion Gap 7.0 3-11 mmol/L Blood Urea Nitrogen 14 7-18 mg/dl Creatinine 1.07 0.60-1.40 mg/dl Estimated GFR () 90.7 Estimated GFR (Non- 78.3 BUN/Creatinine Ratio 13.4 10-20 Random Glucose 128 70-99 mg/dl Calcium Level 10.2 8.5-10.1 mg/dl Total Bilirubin 0.5 0.2-1 mg/dl Aspartate Amino Transf (AST/SGOT) 19 15-37 U/L Alanine Aminotransferase (ALT/SGPT) 36 12-78 U/L Alkaline Phosphatase 86 45-117 U/L Total Protein 9.2 6.4-8.2 gm/dl Albumin 4.0 3.4-5.0 gm/dl Globulin 5.2 2.5-4.0 gm/dl Albumin/Globulin Ratio 0.8 0.9-2 Lipase 117 73-393 U/L Urine Color YELLOW Urine Appearance CLEAR CLEAR Urine pH 5.0 4.5-7.5 Urine Specific [place] > 1.045 1.000-1.030 Urine Protein NEG NEG Urine Glucose (UA) NEG NEG Urine Ketones NEG NEG Urine Occult Blood NEG NEG Urine Nitrite NEG NEG Urine Bilirubin NEG NEG Urine Urobilinogen NEG NEG Urine Leukocyte Esterase NEG NEG Microbiology Results 09/15/17 Gram Stain - Final, Resulted 09/15/17 Bacterial Culture, Resulted Pending Assessment & Plan POD # 0 s/p abdominal wound exploration with evacuation of hematoma and culture -vitals stable - pain controlled - Drain with serosanguineous output - Culture pending Plan: Continue current pain management continue IV fluids and IV antibiotics Continue full liquids for now Start Maalox 15 ml po q6h prn dyspepsia Switch to protonix BID elevated head of bead at night encourage ambulation Dressing change tomorrow Dr. Galvez has seen and examined patient agrees with above
[2017-09-15] MEDS ORDERED: ALUMINUM/MAGNESIUM/SIMETH (MAALOX MAX) 30 ML UDC PO PRN (14:00)
[2017-09-15] MEDS: PANTOprazole SOD 40 MG TAB PO SCH ×2 (14:33→21:11)
[2017-09-16] MEDS: CEFAZOLIN IV 1,000 MG in SYRINGE 0 ML IV SCH ×5 (00:22→23:56)
[2017-09-16 07:59] VITALS: BP 108/64; PULSE 53; PULSE 65; TEMP 36.9; O2SAT 93
[2017-09-16] MEDS: LACTATED RINGER'S 1000ML 1,000 ML IV SCH (08:04)
[2017-09-16 08:51] VITALS: O2SAT 93
[2017-09-16] MEDS ORDERED: PANTOprazole SOD 40 MG TAB PO SCH (09:00)
[2017-09-16] MEDS: PANTOprazole SOD 40 MG TAB PO SCH ×2 (09:07→20:58)
[2017-09-16] MEDS: DOCUSATE SODIUM/SENNA 50/8.6MG TAB PO SCH ×2 (09:07→20:58)
[2017-09-16 11:36] VITALS: BP 113/74; PULSE 67; TEMP 36.8; O2SAT 98
--- NOTE | 2017-09-16 13:02 | Surgery Progress Note ---
Surgery Progress Note Date of Service Sep 16, 2017. Subjective Post OP Day: 1 + feeling well, + ambulating, + bowel movement, + flatus, + pain controlled, + diet (regular diet), No complaints, No chest pain, No SOB, No nausea, No vomiting s/p abdominal wound exploration and evacuation of hematoma/seroma Objective Vital Signs: Date Time Temp Pulse Resp B/P (MAP) Pulse Ox O2 Delivery O2 Flow Rate FiO2 09/16/17 11:36 36.8 67 20 113/74 (87) 98 Room Air 09/16/17 08:51 93 Room Air 09/16/17 08:06 Room Air 09/16/17 07:59 36.9 65 20 108/64 (79) 93 Room Air 09/15/17 23:26 36.4 50 16 116/70 (85) 94 Room Air 09/15/17 19:54 36.6 60 17 124/76 (92) 95 Room Air 09/15/17 19:20 Room Air 09/15/17 15:26 36.6 86 17 133/74 (93) 96 Room Air General Appearance: no apparent distress, + obese Head: normocephalic, atraumatic Neck: trachea midline Respiratory/Chest: no respiratory distress, no accessory muscle use Abdomen: non distended, soft, + tenderness (minimal at incision site) Incision(s): clean, dry, intact, no erythema, no drainage, findings (external sutures present) Assessment & Plan POD # 1 s/p abdominal wound exploration with evacuation of hematoma and culture - vitals stable - pain controlled and minimal - Drain with serosanguineous output - Culture pending Plan: Continue PO pain medication as needed to get patient ready for discharge d/c IV fluids Continue IV antibiotics until discharge continue regular diet Maalox 15 ml po q6h prn dyspepsia Protonix BID elevated head of bead at night encourage ambulation Possible discharge home this evening, Dr. Galvez to evaluate later today
[2017-09-16] MEDS ORDERED: OXYC-57 PO (13:13)
[2017-09-16] MEDS ORDERED: AMOX875T PO (13:13)
--- NOTE | 2017-09-16 13:17 | Discharge Instructions ---
Discharge Instructions Date of Service Sep 16, 2017. Admission Reason for Admission: Hematoma Discharge Discharge Diagnosis / Problem: same, s/p umbilical hernia repair Discharge Goals Goal(s): Decrease discomfort, Improve function Activity Recommendations Activity Limitations: as noted below No heavy lifting over 10 pounds for 4-6 weeks No strenuous activity until cleared by surgeon No submerging incisions underwater for 2 weeks (no bathing, swimming, or hot tubs) No driving while taking narcotic pain medication or until you are pain free . Instructions / Follow-Up Instructions / Follow-Up You may shower when you get home, let water hit your back and wash hair. Try to keep incision clean and dry. Keep dressing over incision daily as there is external sutures present Walking and light activity is encouraged Follow-up with Dr. Galvez in 1 week, please call office at [phone] to make an appointment If you are discharged with drain, keep track of how much is drained in 24 hours and record it, you may need to see a nurse in the office for drain removal prior to follow up appointment Current Hospital Diet Patient's current hospital diet: Regular Diet Discharge Diet Recommended Diet: Regular Diet Procedures Procedures Performed: Abdominal wound exploration, evacuation hematoma, culture Pending Studies Studies pending at discharge: yes List of pending studies: culture results pending Medical Emergencies . Who to Call and When: Medical Emergencies: If at any time you feel your situation is an emergency, please call 911 immediately. . Non-Emergent Contact Non-Emergency issues call your: Primary Care Provider, Surgeon Call Non-Emergent contact if: you have a fever, temperature is above 101, your pain is not controlled, your pain is worsening, your pain is unusual for you, wound has increased drainage, wound has increased redness, wound has increased pain . "Provider Documentation" section prepared by Yuni Orona. . VTE Core Measure Inpt VTE Proph given/why not?: SCD's [place] Drug Monitoring Program Search Results: patient reviewed within database, no issues identified
[2017-09-16 15:25] VITALS: BP 123/70; PULSE 56; TEMP 36.8; O2SAT 94
[2017-09-16 23:15] VITALS: BP 118/75; PULSE 59; TEMP 36.4; O2SAT 97
[2017-09-17] MEDS: CEFAZOLIN IV 1,000 MG in SYRINGE 0 ML IV SCH ×2 (05:21→12:22)
[2017-09-17 06:58] VITALS: BP 111/56; PULSE 56; TEMP 36.4; O2SAT 94
[2017-09-17] MEDS: DOCUSATE SODIUM/SENNA 50/8.6MG TAB PO SCH (08:26)
[2017-09-17] MEDS: PANTOprazole SOD 40 MG TAB PO SCH (08:26)
--- NOTE | 2017-09-17 12:05 | Surgery Progress Note ---
Surgery Progress Note Date of Service Sep 17, 2017. Subjective + feeling well pt is doing fine, no abdominal pain, no nausea, no vomiting, passed BM, KARTHIKEYAN 5 cc /24 h Objective Vital Signs: Date Time Temp Pulse Resp B/P (MAP) Pulse Ox O2 Delivery O2 Flow Rate FiO2 09/17/17 07:50 Room Air 09/17/17 06:58 36.4 56 16 111/56 (74) 94 Room Air 09/16/17 23:15 36.4 59 16 118/75 (89) 97 Room Air 09/16/17 19:50 Room Air 09/16/17 15:25 36.8 56 18 123/70 (87) 94 Room Air Physical Exam: KARTHIKEYAN drainage (5ml clear) General Appearance: WD/WN, no apparent distress Head: normocephalic Neck: supple, no JVD Respiratory/Chest: chest non-tender, lungs clear, normal breath sounds Cardiovascular: regular rate, rhythm, no edema, no gallop, no JVD, no murmur Abdomen: normal bowel sounds, non tender, non distended, soft, no organomegaly Incision(s): clean, dry, intact Extremities: normal range of motion, non-tender, normal inspection Assessment & Plan S/P removal incision seroma, POD 2 pt is doing fine, no abdominal pain pt wants to go home to day, pulled out KARTHIKEYAN the post-op care instruction was given, F/U DR. Galvez 1-2 weeks,
[2017-09-17 12:12] VITALS: BP 111/56; PULSE 56; TEMP 36.4; O2SAT 94
--- NOTE | 2017-09-18 15:29 | Discharge Summary ---
Discharge Summary Dates Admission Date / Time: Sep 15, 2017 at 03:35 Discharge Date: Sep 17, 2017 Dispostion / Condition Discharge Disposition: Home Condition at Discharge: Good Principal Diagnosis (1) Hematoma Problem List (1) Diverticulitis of colon (2) Incarcerated umbilical hernia Consultations / Procedures Procedures: abdominal wound exploration evacuation of hematoma/seroma Pending Studies / Follow-Up wound culture final results Preliminary showing no growth Medication Reconciliation New Medications: Amoxicillin & Pot Clavulanate (Augmentin 875-125 mg) 1 Tab Tab 1 TAB PO BID, #14 TAB Continued Medications: Multivitamin (Multivitamin) Tab 1 TABLET PO DAILY, TAB Omeprazole (Prilosec) 20 Mg Capcr 20 MG PO DAILY, CAP Oxycodone/Acetaminophen 5MG/325MG (Percocet 5MG/325MG) Tab 1 TABLET PO Q4H PRN for Pain, #30 TAB 0 Refills (This prescription has been renewed) Admission HPI Per the Admitting provider: The patient is a 56 year old male with complaints of 24-48 hrs of abd pain- initially around recent wound and now more diffuse. Had incarcerated umbilical hernia repair with mesh 09/09/17. CT shows fluid , gas w/n wound area- could be loop of bowel. Hospital Course (1) Hematoma Patient was taken to operating room for abdominal wound exploration and possible bowel resection, possible removal of mesh and hernia repair. A hematoma/seroma was found at the surgical site however mesh intact and no evidence of bowel strangulation. The wound was irrigated with antibiotic solution and drain placed. The wound was approximated with sutures. Patient tolerated procedure well and was transferred to recovery in stable condition and then to medical/surgical floor for postoperative care. Patient was started on IV fluids, IV antibiotics, full liquids, IV and PO Pain medication as needed , IV Zofran. POD # 0 patient evaluated and was having mild pain which was controlled. KARTHIKEYAN had about 25 cc on POD # 0. Patient was having significant heartburn even after taking Protonix in the morning. Was started on Maalox 15 ml q 6 hours as needed and increased Protonix to BID and elevated head of bed. Continued antibiotics. Diet was advanced to regular diet. POD # 1 pain improving, tolerated regular diet, minimal pain only had a few doses of IV pain medication since surgery. Has not had any oral pain medication. + bowel function. KARTHIKEYAN output only 20 cc. IV fluids were discontinued and IV antibiotics were continued until discharge. POD # 2 patient without pain and ready to go home. KARTHIKEYAN drain only with 5 cc output. Vitals stable. KARTHIKEYAN drain was removed prior to discharged. Overall hospital course uneventful. Discharge Instructions as given to patient Copies To Primary Care Provider: Yolis Richter M.D..
== END 2017-09-17 13:53 | disposition home or self-care (01) | DRG 920 ==
LOC: C.EDB 21:32 → C.EDC 09-15 02:00 → C.MSN 09-15 03:35 → ENRESERV 09-15 04:21
PROVIDERS: ADMIT Surgery; ATTEND Surgery
PROC: 0JC80ZZ Extirpation of Matter from Abdomen Subcutaneous Tissue and Fascia, Open Approach (ICD-10-PCS; principal; 2017-09-15 01:44)
DX: L76.32 Postprocedural hematoma of skin and subcutaneous tissue following other procedure (principal); Z68.41 Body mass index [BMI] 40.0-44.9, adult; L76.34 Postprocedural seroma of skin and subcutaneous tissue following other procedure; Z98.890 Other specified postprocedural states; K21.9 Gastro-esophageal reflux disease without esophagitis; E66.9 Obesity, unspecified

== ENCOUNTER 2020-01-22 19:29 | Inpatient (IN) ==
--- OUTSIDE RECORDS SUMMARY | 2020-01-22 19:31 | External Medical Summary | Continuity of Care Document ---
:1960 Author Name Gael Corona Address Unavailable Unavailable , Care Team Providers Name Role Phone Judi Arambula M.D. Unavailable [email or web address] [email or web address], UNKNOWN Unavailable Unavailable Problems Active medical history not documented Allergies and Adverse Reactions Allergy history not documented Medications Medications not documented Procedures Procedures not documented Immunizations Immunizations not documented Plan of Treatment Planned Observations Planned Goals not documented Results No Known Results Results not documented
--- OUTSIDE RECORDS SUMMARY | 2020-01-22 19:31 | External Medical Summary | Continuity of Care Document ---
:1960 Author Name Gael Corona Address Unavailable Unavailable , Care Team Providers Name Role Phone Judi Arambula M.D. Unavailable [email or web address] PCP, UNKNOWN Unavailable Unavailable Problems Active medical history not documented Allergies and Adverse Reactions Allergy history not documented Medications Medications not documented Procedures Procedures not documented Immunizations Immunizations not documented Plan of Treatment Planned Observations Planned Goals not documented Results No Known Results Results not documented
[2020-01-22] MEDS ORDERED: SODIUM CHLORIDE 0.9% 500 ML IV SCH (19:45)
--- NOTE | 2020-01-22 19:50 | Emergency Department Note ---
History of Present Illness General Chief complaint: Shortness of Breath/Dyspnea Stated complaint: SOB, ELEVATED HEART RATE Time Seen by Provider: 01/22/20 19:39 History of Present Illness Maximum Pain Intensity: 3 The patient is a 59-year-old male who presented to the emergency department for an evaluation of chest pain and palpitations. The patient states that a few hours prior to arrival he started noticing discomfort in his chest mostly in the left side. He also noticed he was having more trouble breathing than previous. The patient states his shortness of breath is exertional in nature. He denies having any recent traveling. He denies having any cough or fever. He denies having any nausea or vomiting. The patient has a cast on his left lower extremity from an injury on December 16. The patient denies having any pain in his leg or swelling in his leg compared to previous. He is not been seen by his primary care physician for this. He denies having any previous cardiac catheterization or stress testing. The patient states his symptoms are moderate at this time and worsened with any exertion. Home Medications Home Medications Medication Instructions Recorded Confirmed Type aspirin [Sujatha Aspirin] 325 - 975 mg PO DAILY PRN 01/22/20 01/22/20 History omeprazole magnesium [Prilosec OTC] 20 mg PO QAM 01/22/20 01/22/20 History Allergies Allergy/AdvReac Type Severity Reaction Status Date / Time No Known Allergies Allergy Unverified 01/22/20 20:48 Past Med/Surg History Medical History (Updated 01/22/20 @ 20:29 by Liang Mary DO) Hematoma Incarcerated umbilical hernia SBO (small bowel obstruction) Umbilical hernia Social History Preferred Language: Irish Feels Safe at Home: Yes Smoking Status: Never smoker Review of Systems See HPI for pertinent positives & negatives. and A total of 10 systems reviewed and were otherwise negative Physical Exam Vital Signs Vital Signs - 24 hr 01/22/20 19:36 01/22/20 19:48 01/22/20 20:43 Temperature 36.4 C L Temperature Source Oral Pulse Rate 118 H Pulse Rate [Bilateral Apical] 121 H Respiratory Rate 18 20 Respiratory Effort / Characteristics Non-Labored Spontaneous Blood Pressure [Right Arm] 129/82 Blood Pressure Mean [Right Arm] 97 Pulse Oximetry 93 92 Oxygen Delivery Method Room Air Room Air Room Air Sepsis Recent Fever Within 48 Hours No Sepsis New/Unexplained Change in Mental Status No Sepsis Action Taken by Nursing No Action Required 01/22/20 21:29 Temperature Temperature Source Pulse Rate Pulse Rate [Bilateral Apical] 121 H Respiratory Rate 20 Respiratory Effort / Characteristics Blood Pressure [Right Arm] 124/105 H Blood Pressure Mean [Right Arm] 111 Pulse Oximetry 93 Oxygen Delivery Method Room Air Sepsis Recent Fever Within 48 Hours Sepsis New/Unexplained Change in Mental Status Sepsis Action Taken by Nursing GENERAL: The patient is awake and alert. He does not appear to be uncomfortable or anxious. EYES: The conjunctivae are clear. The pupils are round and reactive. EARS, NOSE, MOUTH AND THROAT: The nose is without any evidence of any deformity. Mucous membranes are moist. Tongue is midline. NECK: The neck is nontender and supple. RESPIRATORY: Tachypnea was noted. There is no diminished breath sounds noted in the lung armando. CARDIOVASCULAR: Tachycardic rate with regular rhythm was noted. There was no definite murmur noted. GASTROINTESTINAL: The abdomen is soft. Abdomen is nontender. MUSCULOSKELETAL/EXTREMITIES: There is no evidence of gross deformity full range of motion is noted in the hips and shoulders. SKIN: There is a lower leg cast on the left leg. There is no edema in the thighs. Capillary refill in the left foot is brisk. NEUROLOGIC: Patient is awake alert and oriented x3. Course Course 2024: The [facility] hospitalist was notified about the patient in the emergency department. I discussed the patient's radiographic studies with him. IV heparin was ordered. Administered Medications Heparin Sodium/Dextrose (Heparin Sodium/Dextrose) 25,000 units in 500 mls @ 41 mls/hr IV .[id number] [facility]; Protocol Stop: 02/21/20 20:29 Last Admin: 01/22/20 20:40 Dose: 2,050 units/hr, 41 mls/hr Documented by: [id number] Cosigned by: [id number] Discontinued Medications Heparin Sodium (Porcine) (Heparin Sodium (Porcine)) Confirm Administered Dose 10,000 units .[facility] Stop: 01/22/20 20:35 Last Admin: 01/22/20 20:40 Dose: 9,000 units Documented by: [id number] Cosigned by: [id number] Heparin Sodium/Dextrose () 1 ea IV NOW STA; Protocol Stop: 01/22/20 20:17 Last Admin: 01/22/20 20:44 Dose: Not Given Documented by: [id number] Sodium Chloride (Nss) 500 mls @ 999 mls/hr IV .Q31M TG Stop: 01/22/20 20:15 Last Infusion: 01/22/20 20:56 Dose: 0 mls/hr Documented by: [id number] Admin: 01/22/20 20:05 Dose: 999 mls/hr Documented by: [id number] Ioversol (Optiray 320 125ml) 118 ml IV ONCE PRN PRN Reason: Interaction Checking Stop: 01/26/20 20:17 Last Admin: 01/22/20 20:19 Dose: 118 ml Documented by: [id number] Critical Care Time Critical Care Time: Yes Total Critical Care Time: 60 I have personally spent greater than 60 minutes of critical care time in the direct management of this patient. This includes bedside care, interpretation of diagnostic studies, and testing, discussion with consultants, patient, and family members, and other required patient management activities. This 60 minutes is in excess of all separately billable procedures. Medical Decision Making Differential Diagnosis Reactive airway disease, pneumonia, pneumothorax, COPD, CHF, infections, cardiac ischemia, pulmonary embolism, musculoskeletal, gastrointestinal, as well as other pathologies. Medical Records Attestation: I reviewed the patient's medical records. Home Medications Current Medication List: was personally reviewed by me Laboratory Data Attestation: I reviewed the patient's lab results. Result diagrams: 01/22/20 19:50 01/22/20 19:50 Lab Results 01/22/20 01/22/20 01/22/20 Range/Units 19:50 19:50 19:50 WBC 8.27 (4.8-10.8) K/uL RBC 5.31 (4.7-6.1) M/uL Hgb 16.0 (14.0-18.0) g/dL POC Hgb (14.0-18.0) g/dl Hct 46.5 (42-52) % POC Hct (42-52) % MCV 87.6 (80-100) fL MCH 30.1 (25-34) pg MCHC 34.4 (32-36) g/dL RDW Std Deviation 41.7 (36.4-46.3) fL RDW Coeff of Luis 13.1 (11.5-14.5) % Plt Count 179 (130-400) K/uL MPV 12.0 H (7.4-10.4) fL Immature Gran % (Auto) 0.1 % Neut % (Auto) 60.6 % Lymph % (Auto) 28.9 % [place] % (Auto) 8.6 % Eos % (Auto) 1.6 % Baso % (Auto) 0.2 % Immature Gran # (Auto) 0.01 (0.00-0.02) K/uL Neut # (Auto) 5.01 (1.4-6.5) K/uL Lymph # (Auto) 2.39 (1.2-3.4) K/uL [place] # (Auto) 0.71 H (0.11-0.59) K/uL Eos # (Auto) 0.13 (0-0.5) K/uL Baso # (Auto) 0.02 (0-0.2) K/uL Absolute Nucleated RBC 0.10 H (0-0) K/uL Nucleated RBC % (auto) 1.2 % PT 10.7 (9.0-12.0) Seconds INR 1.0 (0.9-1.1) APTT 30.8 (21.0-31.0) Seconds PTT Ratio 1.1 POC Sodium (135-144) mmol/L Sodium 137 (136-145) mmol/L POC Potassium (3.3-5.0) mmol/L Potassium 3.3 L (3.5-5.1) mmol/L POC Chloride (101-112) mmol/L Chloride 105 (98-107) mmol/L Carbon Dioxide 22 (21-32) mmol/L POC Total CO2 (24-31) mEq/l Anion Gap 10.0 (3-11) POC Anion Gap (16-25) mmol/L POC BUN (7-18) mg/dl BUN 16 (7-18) mg/dl Creatinine 1.21 (0.6-1.4) mg/dl POC Creatinine (0.6-1.3) mg/dl Est Cr Clr Drug Dosing Not Reportable Est GFR ( Amer) 76.6 Est GFR (Non-Af Amer) 66.1 BUN/Creatinine Ratio 13.3 (10-20) Glucose 136 H (70-99) mg/dl POC Glucose (other) (70-99) mg/dl Calcium 9.6 (8.5-10.1) mg/dl POC Ioniz Calcium Vijaya (1.12-1.32) mmol/l Magnesium 1.9 (1.8-2.4) mg/dl Total Bilirubin 0.5 (0.2-1) mg/dl AST 21 (15-37) U/L ALT 36 (12-78) U/L Alkaline Phosphatase 89 (45-117) U/L Troponin I 0.742 H* (0-0.045) ng/ml Total Protein 8.3 H (6.4-8.2) gm/dl Albumin 3.9 (3.4-5.0) gm/dl Globulin 4.4 H (2.5-4.0) gm/dl Albumin/Globulin Ratio 0.9 (0.9-2) 01/22/20 Range/Units 19:56 WBC (4.8-10.8) K/uL RBC (4.7-6.1) M/uL Hgb (14.0-18.0) g/dL POC Hgb 16.3 (14.0-18.0) g/dl Hct (42-52) % POC Hct 48 (42-52) % MCV (80-100) fL MCH (25-34) pg MCHC (32-36) g/dL RDW Std Deviation (36.4-46.3) fL RDW Coeff of Luis (11.5-14.5) % Plt Count (130-400) K/uL MPV (7.4-10.4) fL Immature Gran % (Auto) % Neut % (Auto) % Lymph % (Auto) % [place] % (Auto) % Eos % (Auto) % Baso % (Auto) % Immature Gran # (Auto) (0.00-0.02) K/uL Neut # (Auto) (1.4-6.5) K/uL Lymph # (Auto) (1.2-3.4) K/uL [place] # (Auto) (0.11-0.59) K/uL Eos # (Auto) (0-0.5) K/uL Baso # (Auto) (0-0.2) K/uL Absolute Nucleated RBC (0-0) K/uL Nucleated RBC % (auto) % PT (9.0-12.0) Seconds INR (0.9-1.1) APTT (21.0-31.0) Seconds PTT Ratio POC Sodium 139 (135-144) mmol/L Sodium (136-145) mmol/L POC Potassium 3.4 (3.3-5.0) mmol/L Potassium (3.5-5.1) mmol/L POC Chloride 103 (101-112) mmol/L Chloride (98-107) mmol/L Carbon Dioxide (21-32) mmol/L POC Total CO2 21 L (24-31) mEq/l Anion Gap (3-11) POC Anion Gap 19.0 (16-25) mmol/L POC BUN 18 (7-18) mg/dl BUN (7-18) mg/dl Creatinine (0.6-1.4) mg/dl POC Creatinine 1.1 (0.6-1.3) mg/dl Est Cr Clr Drug Dosing Est GFR ( Amer) Est GFR (Non-Af Amer) BUN/Creatinine Ratio (10-20) Glucose (70-99) mg/dl POC Glucose (other) 142 H (70-99) mg/dl Calcium (8.5-10.1) mg/dl POC Ioniz Calcium Vijaya 1.18 (1.12-1.32) mmol/l Magnesium (1.8-2.4) mg/dl Total Bilirubin (0.2-1) mg/dl AST (15-37) U/L ALT (12-78) U/L Alkaline Phosphatase (45-117) U/L Troponin I (0-0.045) ng/ml Total Protein (6.4-8.2) gm/dl Albumin (3.4-5.0) gm/dl Globulin (2.5-4.0) gm/dl Albumin/Globulin Ratio (0.9-2) Imaging Data Radiologist's Impression: CT ANGIOGRAPHY OF THE CHEST, PULMONARY EMBOLUS PROTOCOL CLINICAL HISTORY: Shortness of breath. Chest pain. COMPARISON STUDY: Chest radiograph September 14, 2017. TECHNIQUE: Following IV administration of 118 mL of Optiray-320, helical axial images of the chest were obtained utilizing the pulmonary embolus protocol. Maximal intensity projections and sagittal and coronal reformats were viewed on an independent 3D workstation. IV contrast was administered without complicati on. Automated exposure control was utilized for the study. A dose lowering technique was utilized adhering to the principles of ALARA. CT DOSE: 1027.44 mGy.cm FINDINGS: Extensive bilateral pulmonary emboli are noted including a saddle embolus. Bilateral pulmonary emboli are noted within the bilateral main, lobar and segmental pulmonary arteries. There is bowing of the interventricular septum which indicates elevated right heart pressures. The heart is mildly enlarged. No enlarged thoracic lymph nodes are present. There is a small hiatal hernia. There is no pulmonary infarct. A few subcentimeter left lower lobe pulmonary nodules are unchanged and CT of September 09, 2017. These are benign. IMPRESSION: Extensive bilateral pulmonary emboli, including a saddle embolus. CT findings indicative of right heart strain. Findings discussed with Dr. Mary at time of dictation. ACT 112: Negative or not required by law. Electronically signed by: Zana Mendoza M.D. 01/22/2020 8:44 PM Dictated: 01/22/202036 Transcribed: 01/22/202036 ECG Data Attestation: I personally reviewed and interpreted this ECG as follows: Indication: + tachycardia Rate (beats per minute): 118 Additional Comments: EKG was obtained in the emergency department. My interpretation is sinus tachycardia at 118 bpm. PVCs were noted. There was poor R wave progression with lateral ST depressions noted. These changes appear new compared to a tracing from September 15, 2017. Blood Pressure Blood Pressure Findings: Normal blood pressure MDM Narrative The patient is a 59-year-old male who presented to the emergency department for an evaluation of chest pain and shortness of breath. The patient noticed that he was having left-sided pleuritic chest pain. The patient also noticed that his heart rate was actually very fast for him. The patient had an injury to his left leg and had a cast placed at the end of November. The patient's history and physical exam appear to be consistent with pulmonary venous thromboembolic disease. CT scan of the chest was obtained. The patient's EKG did show ischemic changes. The patient was treated with IV fluids and IV heparin in the emergency department. My interpretation of the CT appeared to be consistent with a saddle pulmonary embolus. I discussed the patient's laboratory and radiographic studies with him. I discussed this case with the on-call [facility] hospitalist group. They have agreed to evaluate the patient in the emergency department for further management disposition. Patient was reevaluated multiple times. Impression & Plan Pulmonary embolism, Tachycardia, Chest pain Discharge Plan Visit Data *Final* Discharge Date/Time: 01/22/20 21:58 Chief Complaint: Shortness of Breath/Dyspnea Stated Complaint: SOB, ELEVATED HEART RATE ED Provider: Liang Mary Discharge Problem: Pulmonary embolism, Tachycardia, Chest pain Patient Disposition: Admitted As Inpatient Condition: Good Discharge Instructions Interventions: ED Discharge Assessment Last Done: 01/22/20 21:58 Discharge Problem: Pulmonary embolism Qualifiers: Pulmonary embolism type: saddle Chronicity: acute Acute cor pulmonale presence: unspecified Qualified Code(s): I26.92 - Saddle embolus of pulmonary artery without acute cor pulmonale Chest pain Qualifiers: Chest pain type: unspecified Qualified Code(s): R07.9 - Chest pain, unspecified
[2020-01-22 20:03] LABS: Basophils # (auto) 0.02 K/uL (0-0.2); Basophils % (auto) 0.2 %; Eosinophils # (auto) 0.13 K/uL (0-0.5); Eosinophils % (auto) 1.6 %; Hematocrit (blood only) 46.5 % (42-52); Immature Granulocytes # (auto) 0.01 K/uL (0.00-0.02); Immature Granulocytes % (auto) 0.1 %; Lymphocytes # (auto) 2.39 K/uL (1.2-3.4); Lymphocytes % (auto) 28.9 %; Mean Corpuscular Hemoglobin 30.1 pg (25-34); Mean Corpuscular Hgb Conc 34.4 g/dL (32-36); Mean Corpuscular Volume 87.6 fL (80-100); Monocytes # (auto) 0.71 K/uL (0.11-0.59); Monocytes % (auto) 8.6 %; Neutrophils # (auto) 5.01 K/uL (1.4-6.5); Neutrophils % (auto) 60.6 %; Nucleated RBC % (auto) 1.2 %; Platelet Count 179 K/uL (130-400); RDW Coefficient of Variation 13.1 % (11.5-14.5); RDW Standard Deviation 41.7 fL (36.4-46.3); Red Blood Count 5.31 M/uL (4.7-6.1); White Blood Count 8.27 K/uL (4.8-10.8)
[2020-01-22 20:09] LABS: iSTAT Creatinine 1.1 mg/dl (0.6-1.3); iSTAT Hemoglobin 16.3 g/dl (14.0-18.0); iSTAT Ionized Calcium 1.18 mmol/l (1.12-1.32); iSTAT Potassium 3.4 mmol/L (3.3-5.0)
[2020-01-22 20:18] LABS: Partial Thromboplastin Ratio 1.1; Partial Thromboplastin Time 30.8 Seconds (21.0-31.0); Prothrombin Time 10.7 Seconds (9.0-12.0)
[2020-01-22] MEDS ORDERED: OPTIRAY 320 125ml IV PRN (20:18)
[2020-01-22 20:19] LABS: Alanine Aminotransferase 36 U/L (12-78); Albumin Level 3.9 gm/dl (3.4-5.0); Aspartate Aminotransferase 21 U/L (15-37); BUN Creatinine Ratio 13.3 (10-20); Blood Urea Nitrogen 16 mg/dl (7-18); Calcium 9.6 mg/dl (8.5-10.1); Carbon Dioxide 22 mmol/L (21-32); Chloride 105 mmol/L (98-107); Est GFR (African American) 76.6; Est GFR (Non-African American) 66.1; Glucose 136 mg/dl (70-99); Magnesium 1.9 mg/dl (1.8-2.4); Potassium 3.3 mmol/L (3.5-5.1); Sodium 137 mmol/L (136-145)
[2020-01-22 20:32] LABS: Albumin Globulin Ratio 0.9 (0.9-2); Alkaline Phosphatase 89 U/L (45-117); Bilirubin,Total 0.5 mg/dl (0.2-1); Globulin 4.4 gm/dl (2.5-4.0); Total Protein 8.3 gm/dl (6.4-8.2)
[2020-01-22] MEDS ORDERED: HEPARIN SOD 5,000 UNIT/0.5 ML VIAL ONE (20:34)
[2020-01-22 20:36] LABS: Troponin I 0.742 ng/ml (0-0.045)
[2020-01-22] MEDS: HEPARIN SODIUM/DEXTROSE 25,000 UNITS/500 ML BAG IV SCH (20:40)
--- NOTE | 2020-01-22 20:45 | CT Scan Report ---
CT ANGIOGRAPHY OF THE CHEST, PULMONARY EMBOLUS PROTOCOL CLINICAL HISTORY: Shortness of breath. Chest pain. COMPARISON STUDY: Chest radiograph September 14, 2017. TECHNIQUE: Following IV administration of 118 mL of Optiray-320, helical axial images of the chest we re obtained utilizing the pulmonary embolus protocol. Maximal intensity projections and sagittal and coronal reformats were viewed on an independent 3D workstation. IV contrast was administered withou t complication. Automated exposure control was utilized for the study. A dose lowering technique wa s utilized adhering to the principles of ALARA. CT DOSE: 1027.44 mGy.cm FINDINGS: Extensive bilateral pulmonary emboli are noted including a saddle embolus. Bilateral pulmo nary emboli are noted within the bilateral main, lobar and segmental pulmonary arteries. There is bow ing of the interventricular septum which indicates elevated right heart pressures. The heart is mildl y enlarged. No enlarged thoracic lymph nodes are present. There is a small hiatal hernia. There is no pulmonary infarct. A few subcentimeter left lower lobe pulmonary nodules are unchanged and CT of Aug. These are benign. IMPRESSION: Extensive bilateral pulmonary emboli, including a saddle embolus. CT findings indicative of right heart strain. Findings discussed with Dr. Mary at time of dictation. ACT 112: Negative or not required by law. Electronically signed by: Zana Mendoza M.D. 01/22/2020 8:44 PM
[2020-01-22] MEDS ORDERED: METOPROLOL TARTRATE 1 MG/ML VIAL IV PRN (22:30)
[2020-01-22] MEDS ORDERED: OXYCODONE HCL IR 5 MG TAB (IMMEDIATE RELEASE) PO PRN (22:30)
[2020-01-22] MEDS ORDERED: ACETAMINOPHEN 325 MG TAB PO PRN (22:30)
[2020-01-22] MEDS ORDERED: POLYETHYLENE (MIRALAX) 17 GM PACK PO PRN (22:30)
[2020-01-22] MEDS ORDERED: NITROGLYCERIN SL 0.4 MG/TAB TAB SL PRN (22:30)
[2020-01-22] MEDS ORDERED: POTASSIUM CHLORIDE 20 MEQ TABCR PO STA (22:30)
[2020-01-22] MEDS ORDERED: ONDANSETRON INJ 2 MG/ML 2 ML VIAL IV PRN (22:30)
[2020-01-22] MEDS: SODIUM CHLORIDE 0.9% 1000ML 1,000 ML IV SCH (22:50)
--- NOTE | 2020-01-23 00:09 | History and Physical Report ---
DATE OF ADMISSION: 01/22/2020 CHIEF COMPLAINT: Acute pulmonary embolism. HISTORY OF PRESENT ILLNESS: This is a 59-year-old male with past medical history significant for obesity, diverticulitis of the colon, history of umbilical hernia repair complicated with hematoma status post evacuation in 2017. Lives alone, presents with acute shortness of breath and tachycardia. The patient has left fifth metatarsal fracture when he fell from the steps and is following with the [facility]. He is on cast for about a month now, it was changed about a week ago. Not ambulating much because of the pain. Today around 3:30 p.m., he noticed tachycardia and also shortness of breath and mild chest discomfort in the left side 2/10 in severity, so he came to the ER. In the ER, his CAT scan is showing bilateral PE with saddle embolus and he was started on IV heparin, and some right heart strain too. He is hemodynamically stable except for tachycardia, resting comfortably. Denies any headache, no dizziness, no blurred visions, no earache, no runny nose, no sore throat, no cough, no dysphagia. No nausea, no vomiting, no abdominal pain. No diarrhea or constipation, no blood in the stools or black stools. No hematuria. Denies any pain in the legs or calf pain. ALLERGIES: No known drug allergies. PAST MEDICAL HISTORY: As mentioned above. PAST SURGICAL HISTORY: Colonoscopy, cystoscopy with stent placement, urography, laparoscopic partial colectomy with anastomosis, removal of the left wrist ganglion, left rotator cuff repair, incarcerated umbilical hernia repair. MEDICATIONS: The patient is on omeprazole 20 mg p.o. a.m. and aspirin as needed. FAMILY HISTORY: Significant for father had diabetes. SOCIAL HISTORY: Single. No smoking, alcohol rarely. No drug use. REVIEW OF SYSTEMS: As per HPI. Rest of review of systems negative. PHYSICAL EXAMINATION: GENERAL: The patient is obese, not in acute distress. VITAL SIGNS: Temperature 36.4, pulse 121, respiratory rate 20, blood pressure 124/105, oxygen 95% on room air. HEENT: No pallor, no icterus. Pupils equal, round, and reactive to light. NECK: No JVD, no neck masses, no carotid bruits. CARDIOVASCULAR: S1, S2 heard. Tachycardia. No murmurs. RESPIRATORY SYSTEM: Normal AP diameter. No accessory muscle use. No wheezing, no crackles. ABDOMEN: Soft, bowel sounds present, nontender. No distention. CENTRAL NERVOUS SYSTEM: Cranial nerves II-XII grossly intact, nonfocal. EXTREMITIES: Left lower extremity in cast. No calf tenderness. No erythema seen. LABORATORY DATA: WBC 8.2, hemoglobin 16, hematocrit 46.5, platelets 179. PT 10.7, INR 1, APTT 30.8. Sodium 137, potassium 3.3, chloride 105, bicarbonate 22, BUN 16, creatinine 1.2, serum glucose 136, calcium 9.6, magnesium 1.2, total bilirubin 0.5, AST 71, ALT 36, alkaline phosphatase 89. Troponin I of 0.7. IMAGING DATA: CT of the chest shows extensive bilateral pulmonary emboli including a saddle embolus. CT findings indicate a right heart strain. EKG: Sinus tachycardia at a rate of 118, lateral ST depressions. ASSESSMENT AND PLAN: This is a 59-year-old male who presents with tachycardia and shortness of breath, found to be acute pulmonary embolism. 1. Acute bilateral extensive pulmonary embolism with saddle embolus. Risk factors, the patient has left fifth metatarsal fracture on cast and is on crutches for about a month. Elevated troponin of 0.7. Discussed with critical care. Plan to monitor in the tele floor with IV heparin and monitor his hemodynamics. Currently, hemodynamics are stable. If hemodynamics decompensate, plan for TPA. 2. Mild elevation of troponin secondary to above with right heart strain. There are some EKG changes too. We will get serial troponins, echocardiogram, and consult cardiology for further recommendations. 3. Deep venous thrombosis prophylaxis, IV heparin. DISPOSITION: Closely monitor in tele floor. Level 1 full code. MTDD
[2020-01-23 03:51] LABS: Partial Thromboplastin Ratio 2.2
[2020-01-23 03:56] LABS: Partial Thromboplastin Time 62.6 Seconds (21.0-31.0)
[2020-01-23 06:06] LABS: Basophils # (auto) 0.02 K/uL (0-0.2); Basophils % (auto) 0.2 %; Eosinophils # (auto) 0.08 K/uL (0-0.5); Eosinophils % (auto) 0.8 %; Hematocrit (blood only) 44.6 % (42-52); Immature Granulocytes # (auto) 0.02 K/uL (0.00-0.02); Immature Granulocytes % (auto) 0.2 %; Lymphocytes # (auto) 2.74 K/uL (1.2-3.4); Lymphocytes % (auto) 26.1 %; Mean Corpuscular Hemoglobin 29.6 pg (25-34); Mean Corpuscular Hgb Conc 33.6 g/dL (32-36); Mean Platelet Volume 12.2 fL (7.4-10.4); Monocytes # (auto) 0.94 K/uL (0.11-0.59); Neutrophils # (auto) 6.69 K/uL (1.4-6.5); Neutrophils % (auto) 63.7 %; Platelet Count 179 K/uL (130-400); RDW Coefficient of Variation 13.3 % (11.5-14.5); RDW Standard Deviation 42.8 fL (36.4-46.3); Red Blood Count 5.07 M/uL (4.7-6.1); White Blood Count 10.49 K/uL (4.8-10.8)
[2020-01-23 06:37] LABS: BUN Creatinine Ratio 14.9 (10-20); Calcium 9.1 mg/dl (8.5-10.1); Creatinine Clr Calc Pharmacy 124.8 ml/min; Est GFR (Non-African American) 80.3; Magnesium 2.1 mg/dl (1.8-2.4)
[2020-01-23 06:42] LABS: Troponin I 2.1 ng/ml (0-0.045)
[2020-01-23] MEDS: SODIUM CHLORIDE 0.9% 1000ML 1,000 ML IV SCH (08:23)
[2020-01-23] MEDS: HEPARIN SODIUM/DEXTROSE 25,000 UNITS/500 ML BAG IV SCH (08:24)
[2020-01-23] MEDS ORDERED: PANTOprazole 40 MG TAB PO SCH (09:00)
--- NOTE | 2020-01-23 11:48 | Hospitalist Progress Note ---
Date of Service January 23, 2020 Assessment & Plan (1) Pulmonary embolism: Has extensive bilateral pulmonary emboli with a saddle embolus Seems to be provoked secondary to decreased mobility following left fifth metatarsal fracture Remained hemodynamically stable and did not require any TPA Has been on intravenous heparin We will decide for oral anticoagulation with Coumadin or DOAC Will need about 6 months of therapy We will get pulmonary involved due to severity of the embolism (2) Chest pain: Complaint chest pain with troponin increased 0.7 on admission EKG did show incomplete right bundle branch block Echocardiogram: Normal LV chamber size with moderate concentric LVH, EF was 60 to 65%, flattened, D-shaped septum, consistent with RV pressure/volume overload, grade 1 diastolic dysfunction, severely dilated RV chamber size, akinesis of the free RV wall with preserved motion of the RV apex trace TR Troponin elevated to 2.22 ,consistent with demand ischemia Cardiology consulted-awaiting further recommendation (3) Nondisplaced fracture of fifth left metatarsal bone: Left fifth metatarsal fracture following a fall more than a month ago Under care of [facility] orthopedics He is 1 month old cast was changed about a week ago He has been limitedly mobile due to the cast and pain DVT prophylaxis Has been on IV heparin CODE STATUS Full Admission and Anticipated Discharge Date Admission Date: January 22, 2020 Subjective The patient was seen and examined in telemetry unit He is a 59-year-old obese male without significant past medical history was admitted yesterday with acute bilateral pulmonary embolism History of left fifth metatarsal fracture and has been under care of Ortho with a cast that was changed about 2 weeks ago He has been limitedly mobile and is a likely cause of pulmonary embolism Complains to have some chest discomfort with pain on deep breathing No significant shortness of breath at rest Updated at 2 PM He was seen by production support consultant, echo has been done and the report is as below. He was evaluated by emotionally impaired teacher and was advised for transfer to tertiary care center for possible CDT for pulmonary embolism Discussed with Dr. Tracey, emotionally impaired teacher and Dr. Salas IR specialist and was transferred to [facility] for continued care Discussed with the patient Dr Cally Figueroa Review of Systems Review of Systems: All systems reviewed and are unremarkable except as noted below Respiratory: + dyspnea on exertion; no cough and no dyspnea Cardiovascular: + chest pain (With breathing) Physical Exam Physical Exam: Lying in bed comfortably Constitutional: well developed, well nourished, + acute distress and + obese; not ill appearing Eyes: PERRL, conjunctivae normal, anicteric sclerae ENMT: external ear and nose normal, oropharynx normal Neck: trachea midline, no thyromegaly Respiratory: normal respiratory effort; no respiratory distress Auscultation: lungs clear to auscultation bilaterally Cardiovascular: Rate/Rhythm: regular rate and regular rhythm Heart Sounds: no murmur Gastrointestinal (Abdomen): Inspection/Auscultation: abdomen normal to inspection and normal bowel sounds Percussion/Palpation: abdomen soft; abdomen nontender Musculoskeletal: No acute arthritis in any joints Neurologic: moves all extremities; no focal motor deficits Lymphatic: no cervical or axillary lymphadenopathy Results & Data Results & Data ([facility]) Vital Signs (Past 12 Hours) Vital Signs Temp Pulse Pulse Resp BP Pulse Ox 01/23/20 10:49 36.7 C 92 H 22 101/68 93 01/23/20 09:32 102 H 01/23/20 08:00 36.8 C 101 H 20 106/72 93 01/23/20 03:28 36.5 C 105 H 20 102/75 94 01/23/20 00:14 36.3 C L 109 H 20 100/65 93 Laboratory Results Short CBC 01/22/20 01/23/20 Range/Units 19:50 05:29 WBC 8.27 10.49 (4.8-10.8) K/uL Hgb 16.0 15.0 (14.0-18.0) g/dL Hct 46.5 44.6 (42-52) % Plt Count 179 179 (130-400) K/uL BMP 01/22/20 01/23/20 19:50 05:29 Sodium 137 140 Potassium 3.3 L 4.0 D Chloride 105 109 H Carbon Dioxide 22 24 BUN 16 15 Creatinine 1.21 1.03 Glucose 136 H 138 H Calcium 9.6 9.1 Cardiac Enzymes 01/22/20 01/22/20 01/23/20 Range/Units 19:50 23:08 05:29 Troponin I 0.742 H* 2.220 H* 2.100 H* (0-0.045) ng/ml Liver Function 01/22/20 Range/Units 19:50 Total Bilirubin 0.5 (0.2-1) mg/dl AST 21 (15-37) U/L ALT 36 (12-78) U/L Alkaline Phosphatase 89 (45-117) U/L Albumin 3.9 (3.4-5.0) gm/dl Medications Administered Current Inpatient Medications Acetaminophen (Tylenol) 650 mg PO Q4H PRN PRN Reason: Pain or Fever Stop: 02/21/20 22:29 Heparin Sodium/Dextrose (Heparin Sodium/Dextrose) 25,000 units in 500 mls @ 41 mls/hr IV .[id number] [facility]; Protocol Stop: 02/21/20 20:29 Last Admin: 01/23/20 08:24 Dose: 2,050 units/hr, 41 mls/hr Documented by: Sodium Chloride (Nss 1000ml) 1,000 mls @ 100 mls/hr IV .Q10H [facility] Stop: 02/21/20 22:29 Last Admin: 01/23/20 08:23 Dose: 100 mls/hr Documented by: Metoprolol Tartrate (Lopressor) 2.5 mg IV Q6 PRN PRN Reason: Tachycardia Stop: 02/21/20 22:29 Ondansetron HCl (Zofran) 4 mg IV Q6H PRN PRN Reason: Nausea Stop: 02/21/20 22:29 Oxycodone HCl (Roxicodone Immediate Rel) 5 mg PO Q6H PRN PRN Reason: Pain Stop: 02/05/20 22:29 Pantoprazole Sodium (Protonix) [facility]: 02/22/20 08:59 Last Admin: 01/23/20 07:41 Dose: 40 mg Documented by: Polyethylene Glycol (Miralax Powder Packet) 17 gm PO DAILY PRN PRN Reason: Constipation Stop: 02/21/20 22:29 (1) Pulmonary embolism Acute cor pulmonale presence: unspecified Chronicity: acute Pulmonary embolism type: saddle Qualified Code(s): I26.92 - Saddle embolus of pulmonary artery without acute cor pulmonale (2) Chest pain Chest pain type: unspecified Qualified Code(s): R07.9 - Chest pain, unspecified
--- NOTE | 2020-01-23 14:17 | Cardiology Consultation ---
Date of Consultation January 23, 2020 Assessment & Plan (1) Pulmonary embolism: Extensive bilateral pulmonary emboli, including a saddle embolus. CT findings indicative of right heart strain. Patient is remained hemodynamically stable and thrombolytics have not been deemed necessary. Has been started on IV heparin. Would recommend evaluation by pulmonary colleagues He is somewhat tachycardic,however, would not start AV hilda blocking agents at this point given the fact that this is likely a physiologic response. (2) Chest pain: Secondary to above (3) Acute right ventricular heart failure: The pathophysiology and treatment of which was discussed with the patient at great length today. He was counseled at this point no further intervention is necessary from a cardiac standpoint. Hemodynamically he will be very preload dependent at this point and recommend continued IV fluids along with anticoagulation. All preload lowering agents should be avoided at all cost including nitroglycerin and narcotics. Will require outpatient follow-up echocardiogram which will be arranged on discharge. (4) Nondisplaced fracture of fifth left metatarsal bone: History of Present Illness Reason for Consultation: RV strain s/p pulmonary embolise Requesting Physician: Dr. Moreira Attending Physician: Sasha Figueroa MD History of Present Illness It was my pleasure to see Mr. Weber in consultation today January 23, 2020. He is a very pleasant 59-year-old gentleman who presented to [facility] emergency department on 01/22/2020 with complaints of shortness of breath and chest pain. The patient has been in a left lower extremity cast for several months now due to 1/5 metatarsal fracture. He states that approximately 1 week prior to presentation he started noticing that he was a little short of breath with little exertion that he was doing. Then on the day of arrival he states he was sitting at home watching television when he suddenly developed chest heaviness. He states that all of a sudden he felt like something heavy was sitting on his chest and he became significantly short of breath at rest. He became concerned and presented to the emergency department. In the ER a CTA was performed which showed a saddle pulmonary embolus. He was hemodynamically stable and decision was made not to give thrombolytic therapy. He was started on IV heparin and admitted to telemetry. The CT also picked up on some RV strain, an echocardiogram was ordered as well as a cardiology consultation. Currently patient states he is feeling well at rest with only slight chest di scomfort remaining. He states it is only a 1 out of 10 on a pain scale but still feels as though it is a heaviness sensation. Allergies Allergy/AdvReac Type Severity Reaction Status Date / Time No Known Allergies Allergy Unverified 01/22/20 20:48 Home Medications Home Medications Medication Instructions Recorded Confirmed Type aspirin [Sujatha Aspirin] 325 - 975 mg PO DAILY PRN 01/22/20 01/22/20 History omeprazole magnesium [Prilosec OTC] 20 mg PO QAM 01/22/20 01/22/20 History Patient History Medical History Hematoma Incarcerated umbilical hernia SBO (small bowel obstruction) Umbilical hernia Social History Preferred Language: Greek Communication Ability: Effective Beliefs That Will Affect Care: None Current Living Situation: Alone Feels Safe at Home: Yes Safety Concerns: Feels Safe At This Time Smoking Status: Never smoker Hx Alcohol Use: Yes Hx Substance Use: No Review of Systems Review of Systems: All systems reviewed & are unremarkable except as noted in HPI & below Physical Exam Physical Exam: General: Awake, alert and oriented x 3. No acute distress. HEENT: Normocephalic, atraumatic. Pupils equal, round and reactive to light and accommodation. Extraocular muscles are intact. Anicteric sclera. Moist mucous membranes. Neck: No JVD. No bruit. Cardiovascular: Regular. Positive S-4. Normal S-1 and S-2. No S-3. 3/6 holosystolic ejection murmur, 5th intercostal space, mid-clavicular line without radiation. No rubs. Pulmonary: Clear to auscultation bilaterally. No rales, rhonchi, or wheezing. Abdomen: Bowel sounds x 4, soft. No rebound, guarding or tenderness. No organomegaly. Extremities: No clubbing, cyanosis or edema. +2 pedal pulses bilaterally. Skin: Warm and dry. Results & Data ([facility]) Vital Signs (Past 12 Hours) Vital Signs Temp Pulse Pulse Resp BP Pulse Ox 01/23/20 10:49 36.7 C 92 H 22 101/68 93 01/23/20 09:32 102 H 01/23/20 08:00 36.8 C 101 H 20 106/72 93 01/23/20 03:28 36.5 C 105 H 20 102/75 94 Laboratory Results Laboratory Results - last 24 hr 01/22/20 01/22/20 01/22/20 19:50 19:50 19:50 WBC 8.27 RBC 5.31 Hgb 16.0 POC Hgb Hct 46.5 POC Hct MCV 87.6 MCH 30.1 MCHC 34.4 RDW Std Deviation 41.7 RDW Coeff of Luis 13.1 Plt Count 179 MPV 12.0 H Immature Gran % (Auto) 0.1 Neut % (Auto) 60.6 Lymph % (Auto) 28.9 [place] % (Auto) 8.6 Eos % (Auto) 1.6 Baso % (Auto) 0.2 Immature Gran # (Auto) 0.01 Neut # (Auto) 5.01 Lymph # (Auto) 2.39 [place] # (Auto) 0.71 H Eos # (Auto) 0.13 Baso # (Auto) 0.02 Absolute Nucleated RBC 0.10 H Nucleated RBC % (auto) 1.2 PT 10.7 INR 1.0 APTT 30.8 PTT Ratio 1.1 POC Sodium Sodium 137 POC Potassium Potassium 3.3 L POC Chloride Chloride 105 Carbon Dioxide 22 POC Total CO2 Anion Gap 10.0 POC Anion Gap POC BUN BUN 16 Creatinine 1.21 POC Creatinine Est Cr Clr Drug Dosing Not Reportable Est GFR ( Amer) 76.6 Est GFR (Non-Af Amer) 66.1 BUN/Creatinine Ratio 13.3 Glucose 136 H POC Glucose (other) Calcium 9.6 POC Ioniz Calcium Vijaya Magnesium 1.9 Total Bilirubin 0.5 AST 21 ALT 36 Alkaline Phosphatase 89 Troponin I 0.742 H* Total Protein 8.3 H Albumin 3.9 Globulin 4.4 H Albumin/Globulin Ratio 0.9 Hepatitis C Ab Screen 01/22/20 01/22/20 01/22/20 19:50 19:56 23:08 WBC RBC Hgb POC Hgb 16.3 Hct POC Hct 48 MCV MCH MCHC RDW Std Deviation RDW Coeff of Luis Plt Count MPV Immature Gran % (Auto) Neut % (Auto) Lymph % (Auto) [place] % (Auto) Eos % (Auto) Baso % (Auto) Immature Gran # (Auto) Neut # (Auto) Lymph # (Auto) [place] # (Auto) Eos # (Auto) Baso # (Auto) Absolute Nucleated RBC Nucleated RBC % (auto) PT INR APTT PTT Ratio POC Sodium 139 Sodium POC Potassium 3.4 Potassium POC Chloride 103 Chloride Carbon Dioxide POC Total CO2 21 L Anion Gap POC Anion Gap 19.0 POC BUN 18 BUN Creatinine POC Creatinine 1.1 Est Cr Clr Drug Dosing Est GFR ( Amer) Est GFR (Non-Af Amer) BUN/Creatinine Ratio Glucose POC Glucose (other) 142 H Calcium POC Ioniz Calcium Vijaya 1.18 Magnesium Total Bilirubin AST ALT Alkaline Phosphatase Troponin I 2.220 H* Total Protein Albumin Globulin Albumin/Globulin Ratio Hepatitis C Ab Screen Neg 01/23/20 01/23/20 01/23/20 03:07 05:29 05:29 WBC 10.49 RBC 5.07 Hgb 15.0 POC Hgb Hct 44.6 POC Hct MCV 88.0 MCH 29.6 MCHC 33.6 RDW Std Deviation 42.8 RDW Coeff of Luis 13.3 Plt Count 179 MPV 12.2 H Immature Gran % (Auto) 0.2 Neut % (Auto) 63.7 Lymph % (Auto) 26.1 [place] % (Auto) 9.0 Eos % (Auto) 0.8 Baso % (Auto) 0.2 Immature Gran # (Auto) 0.02 Neut # (Auto) 6.69 H Lymph # (Auto) 2.74 [place] # (Auto) 0.94 H Eos # (Auto) 0.08 Baso # (Auto) 0.02 Absolute Nucleated RBC Nucleated RBC % (auto) PT INR APTT 62.6 H* PTT Ratio 2.2 POC Sodium Sodium 140 POC Potassium Potassium 4.0 D POC Chloride Chloride 109 H Carbon Dioxide 24 POC Total CO2 Anion Gap 7.0 POC Anion Gap POC BUN BUN 15 Creatinine 1.03 POC Creatinine Est Cr Clr Drug Dosing 124.8 Est GFR ( Amer) 93.0 Est GFR (Non-Af Amer) 80.3 BUN/Creatinine Ratio 14.9 Glucose 138 H POC Glucose (other) Calcium 9.1 POC Ioniz Calcium Vijaya Magnesium 2.1 Total Bilirubin AST ALT Alkaline Phosphatase Troponin I 2.100 H* Total Protein Albumin Globulin Albumin/Globulin Ratio Hepatitis C Ab Screen 01/23/20 10:55 WBC RBC Hgb POC Hgb Hct POC Hct MCV MCH MCHC RDW Std Deviation RDW Coeff of Luis Plt Count MPV Immature Gran % (Auto) Neut % (Auto) Lymph % (Auto) [place] % (Auto) Eos % (Auto) Baso % (Auto) Immature Gran # (Auto) Neut # (Auto) Lymph # (Auto) [place] # (Auto) Eos # (Auto) Baso # (Auto) Absolute Nucleated RBC Nucleated RBC % (auto) PT INR APTT PTT Ratio POC Sodium Sodium POC Potassium Potassium POC Chloride Chloride Carbon Dioxide POC Total CO2 Anion Gap POC Anion Gap POC BUN BUN Creatinine POC Creatinine Est Cr Clr Drug Dosing Est GFR ( Amer) Est GFR (Non-Af Amer) BUN/Creatinine Ratio Glucose POC Glucose (other) Calcium POC Ioniz Calcium Vijaya Magnesium Total Bilirubin AST ALT Alkaline Phosphatase Troponin I 1.320 H* Total Protein Albumin Globulin Albumin/Globulin Ratio Hepatitis C Ab Screen Diagnostic Findings 2D echocardiogram performed today was read as: Normal LV chamber size with moderate concentric LVH. Normal LV systolic function EF 60 to 65%. Flattened, D-shaped septum, consistent with RV pressure/volume overload otherwise normal wall motion. Grade 1 diastolic dysfunction. Severely dilated RV chamber size with akinesis of the free RV wall with preserved motion of the RV apex. Trace tricuspid regurgitation. PA systolic pressure of 27 mmHg assuming a RA pressure of 3 mmHg. Medications Administered Current Inpatient Medications Acetaminophen (Tylenol) 650 mg PO Q4H PRN PRN Reason: Pain or Fever Stop: 02/21/20 22:29 Heparin Sodium/Dextrose (Heparin Sodium/Dextrose) 25,000 units in 500 mls @ 41 mls/hr IV .[id number] [facility]; Protocol Stop: 02/21/20 20:29 Last Admin: 01/23/20 08:24 Dose: 2,050 units/hr, 41 mls/hr Documented by: Sodium Chloride (Nss 1000ml) 1,000 mls @ 100 mls/hr IV .Q10H [facility] Stop: 02/21/20 22:29 Last Admin: 01/23/20 08:23 Dose: 100 mls/hr Documented by: Metoprolol Tartrate (Lopressor) 2.5 mg IV Q6 PRN PRN Reason: Tachycardia Stop: 02/21/20 22:29 Ondansetron HCl (Zofran) 4 mg IV Q6H PRN PRN Reason: Nausea Stop: 02/21/20 22:29 Oxycodone HCl (Roxicodone Immediate Rel) 5 mg PO Q6H PRN PRN Reason: Pain Stop: 02/05/20 22:29 Pantoprazole Sodium (Protonix) 40 mg PO QAM [facility] Stop: 02/22/20 08:59 Last Admin: 01/23/20 07:41 Dose: 40 mg Documented by: Polyethylene Glycol (Miralax Powder Packet) 17 gm PO DAILY PRN PRN Reason: Constipation Stop: 02/21/20 22:29 (1) Pulmonary embolism Acute cor pulmonale presence: unspecified Chronicity: acute Pulmonary embolism type: saddle Qualified Code(s): I26.92 - Saddle embolus of pulmonary artery without acute cor pulmonale (2) Chest pain Chest pain type: unspecified Qualified Code(s): R07.9 - Chest pain, unspecified
--- NOTE | 2020-01-23 14:26 | Ultrasound Report ---
US venous doppler LE LT CLINICAL HISTORY: 59 years-old Male presenting with left lower extremity pain and swelling, cast in p lace in the calf. TECHNIQUE: Real-time grayscale and color and spectral Doppler ultrasound imaging of the veins of the left lower extremity was performed. Compression and augmentation were also utilized. COMPARISON: None. FINDINGS: LEFT: Common femoral vein: Patent. Greater saphenous vein (superficial): Patent. Deep femoral vein: Patent. Femoral vein: Patent. Popliteal vein: Duplicated popliteal veins. In the anterior popliteal vein, filling defect in the mid to distal portion, which may be acute thrombus. This is nonocclusive. In the posterior popliteal vei n, adherent echogenic ovoid 1.5 cm focus also suggesting thrombus though this may be chronic. Interna l echogenic focus may represent calcification. Calf veins: Limited interrogation due to the presence of the cast. Other: None. IMPRESSION: 1. Potentially acute nonocclusive thrombus in one of 2 duplicated popliteal veins. 2. Suspected additional limited nonocclusive chronic appearing thrombus in the other popliteal vein. The report will be called/faxed according to standard departmental protocol. ACT 112: Negative or not required by law. Electronically signed by: Peetr Leblanc M.D. 01/23/2020 2:25 PM
--- NOTE | 2020-01-23 14:33 | Discharge Summary ---
Date of Service January 23, 2020 Admission HPI Per Admitting Provider DICTATED BY: Jun Moreira MD DATE OF ADMISSION: 01/22/2020 CHIEF COMPLAINT: Acute pulmonary embolism. HISTORY OF PRESENT ILLNESS: This is a 59-year-old male with past medical history significant for obesity, diverticulitis of the colon, history of umbilical hernia repair complicated with hematoma status post evacuation in 2017. Lives alone, presents with acute shortness of breath and tachycardia. The patient has left fifth metatarsal fracture when he fell from the steps and is following with the [facility]. He is on cast for about a month now, it was changed about a week ago. Not ambulating much because of the pain. Today around 3:30 p.m., he noticed tachycardia and also shortness of breath and mild chest discomfort in the left side 2/10 in severity, so he came to the ER. In the ER, his CAT scan is showing bilateral PE with saddle embolus and he was started on IV heparin, and some right heart strain too. He is hemodynamically stable except for tachycardia, resting comfortably. Denies any headache, no dizziness, no blurred visions, no earache, no runny nose, no sore throat, no cough, no dysphagia. No nausea, no vomiting, no abdominal pain. No diarrhea or constipation, no blood in the stools or black stools. No hematuria. Denies any pain in the legs or calf pain. Admission Exam Per Admitting Provider GENERAL: The patient is obese, not in acute distress. VITAL SIGNS: Temperature 36.4, pulse 121, respiratory rate 20, blood pressure 124/105, oxygen 95% on room air. HEENT: No pallor, no icterus. Pupils equal, round, and reactive to light. NECK: No JVD, no neck masses, no carotid bruits. CARDIOVASCULAR: S1, S2 heard. Tachycardia. No murmurs. RESPIRATORY SYSTEM: Normal AP diameter. No accessory muscle use. No wheezing, no crackles. ABDOMEN: Soft, bowel sounds present, nontender. No distention. CENTRAL NERVOUS SYSTEM: Cranial nerves II-XII grossly intact, nonfocal. EXTREMITIES: Left lower extremity in cast. No calf tenderness. No erythema seen. Principal Diagnosis Extensive bilateral pulmonary embolism with a saddle emboli Discharge Exam Constitutional well developed, well nourished, + acute distress and + obese; not ill appearing Eyes PERRL, conjunctivae normal, anicteric sclerae ENMT external ear and nose normal, oropharynx normal Neck trachea midline, no thyromegaly Respiratory normal respiratory effort; no respiratory distress Auscultation: lungs clear to auscultation bilaterally Cardiovascular Rate/Rhythm: regular rate and regular rhythm Heart Sounds: no murmur Gastrointestinal (Abdomen) Inspection/Auscultation: abdomen normal to inspection and normal bowel sounds Percussion/Palpation: abdomen soft; abdomen nontender Neurologic moves all extremities; no focal motor deficits Lymphatic no cervical or axillary lymphadenopathy Discharge Data Allergies Allergy/AdvReac Type Severity Reaction Status Date / Time No Known Allergies Allergy Unverified 01/22/20 20:48 Consultations 01/22/20 20:25 ED Decision to Admit Stat 01/22/20 22:30 Consult Case Management - Discharge Planning Routine 01/23/20 08:00 Consult Cardiology Routine 01/23/20 11:50 Consult Pulmonology Routine Ordered Studies 01/22/20 19:42 CT angio chest PE protocol Stat 01/23/20 14:00 US venous doppler LE LT Stat Hospital Course (1) Pulmonary embolism: Has extensive bilateral pulmonary emboli with a saddle embolus Seems to be provoked secondary to decreased mobility following left fifth metatarsal fracture Remained hemodynamically stable and did not require any TPA Has been on intravenous heparin We will decide for oral anticoagulation with Coumadin or DOAC Will need about 6 months of therapy We will get pulmonary involved due to severity of the embolism Appreciate business operations coordinator input and recommendation Likely to be benefited from catheter directed thrombolysis Discussed with the hospitalist, business operations coordinator and IR specialist and the patient will be transferred to [facility] for continued management (2) Chest pain: Complaint chest pain with troponin increased 0.7 on admission EKG did show incomplete right bundle branch block Echocardiogram: Normal LV chamber size with moderate concentric LVH, EF was 60 to 65%, flattened, D-shaped septum, consistent with RV pressure/volume overload, grade 1 diastolic dysfunction, severely dilated RV chamber size, akinesis of the free RV wall with preserved motion of the RV apex trace TR Troponin elevated to 2.22 ,consistent with demand ischemia Cardiology consulted-awaiting further recommendation (3) Nondisplaced fracture of fifth left metatarsal bone: Left fifth metatarsal fracture following a fall more than a month ago Under care of [facility] He is 1 month old cast was changed about a week ago He has been limitedly mobile due to the cast and pain DVT prophylaxis Has been on IV heparin CODE STATUS Full Total Time Total Time Spent Total Time Spent (In Minutes): 40 minutes Total Time Includes: Examination of the Patient, Discharge Planning, Medication Reconciliation and Communication With Other Providers Discharge Plan Discharge Items Patient Disposition: Transfer Acute [facility] Reason For Visit: SOB Discharge Diagnosis: Extensive bilateral pulmonary embolism with a saddle emboli, severe RV strain on echo Condition on Discharge: Fair Activity: As commented below Activity Comment: Transfer to [facility] Non-emergency contact: Primary Care Provider Call non-emergency contact if: you have any medication questions and your symptoms worsen Follow-up/Referrals: PCP,NO [Primary Care Provider] - Diet: Heart Healthy Addtl Attending Provider Instructions: Transfer to [facility]. His home medications have been on hold and all of the inpatient medications were continued on discharge as below: Current Inpatient Medications Acetaminophen (Tylenol) 650 mg PO Q4H PRN PRN Reason: Pain or Fever Stop: 02/21/20 22:29 Heparin Sodium/Dextrose (Heparin Sodium/Dextrose) 25,000 units in 500 mls @ 41 mls/hr IV .[id number] [facility]; Protocol Stop: 02/21/20 20:29 Last Admin: 01/23/20 08:24 Dose: 2,050 units/hr, 41 mls/hr Documented by: Sodium Chloride (Nss 1000ml) 1,000 mls @ 100 mls/hr IV .Q10H [facility] Stop: 02/21/20 22:29 Last Admin: 01/23/20 08:23 Dose: 100 mls/hr Documented by: Metoprolol Tartrate (Lopressor) 2.5 mg IV Q6 PRN PRN Reason: Tachycardia Stop: 02/21/20 22:29 Ondansetron HCl (Zofran) 4 mg IV Q6H PRN PRN Reason: Nausea Stop: 02/21/20 22:29 Oxycodone HCl (Roxicodone Immediate Rel) 5 mg PO Q6H PRN PRN Reason: Pain Stop: 02/05/20 22:29 Pantoprazole Sodium (Protonix) 40 mg PO [facility] Stop: 02/22/20 08:59 Last Admin: 01/23/20 07:41 Dose: 40 mg Documented by: Polyethylene Glycol (Miralax Powder Packet) 17 gm PO DAILY PRN PRN Reason: Constipation Stop: 02/21/20 22:29 Pending Studies at Discharge: No Stand-Alone Forms: My [facility] Skilled Items Patient informed of condition?: Yes DNR: No Discharge Level of Care: Skilled Communicable Disease: No Discharge Prognosis: Stable Lines: None Urinary Catheter: No Medications and DC Order Prescriptions: Discontinued aspirin [Sujatha Aspirin] 325 mg Tablet 325 - 975 mg PO DAILY PRN (Reason: Pain) RF: 0 Prilosec OTC 20 mg Tablet,Delayed Release (Dr/Ec) 20 mg PO QAM RF: 0 Discharge Orders: Discharge Order (Routine); Ordered 01/23/20 Ordered By: Sasha Figueroa Admission Data Admit Date/Time: 01/22/20 21:45 Attending Provider: Sasha Figueroa Admit Provider: Jun Moreira Primary Care Provider: PCP,NO Other Providers: Jun Moreira ; Elbert Carr ; Peter Uriostegui
--- NOTE | 2020-01-23 15:04 | Electrocardiogram Report ---
Test Reason : Blood Pressure : / mmHG Vent. Rate : 101 BPM Atrial Rate : 101 BPM P-R Int : 176 ms QRS Dur : 112 ms QT Int : 372 ms P-R-T Axes : 061 -24 018 degrees QTc Int : 482 ms Sinus tachycardia with occasional Premature ventricular complexes Incomplete right bundle branch block Inferior infarct , age undetermined Abnormal ECG Confirmed by Ar Wilks ([id number]) on 01/23/2020 3:03:41 PM Referred By: REFERRED SELF Confirmed By:Ar Wilks
--- NOTE | 2020-01-23 15:11 | Pulmonary Consultation ---
Date of Consultation January 23, 2020 Assessment & Plan (1) Pulmonary embolism: --Submassive pulmonary embolism Provoked likely secondary to immobilization from cast of left lower extremity status post surgery Intermediate-high risk PE given right ventricular strain with elevated troponin Patient's clinical status and shortness of breath has improved prior after coming to the hospital while on heparin drip His heart rate is went down from 122 at presentation to 96. Saturation is not an issue is saturating 96% on room air with respiratory rate low teens. There is no absolute indication to give TPA to the patient. Patient's pulmonary embolism severity index is 10 today (at the time of presentation it was 30) --> given that it is less than 65 he does fall into class I which is low risk There is been multiple debate regarding use systemic TPA in a patient who had submassive PE/intermediate high risk. There is no mortality benefit of systemic TPA in hemodynamically stable patient. There is benefit in right ventricular systolic function in the long-term and patient who do get systemic TPA in submassive PE. Patient was given the possibilities of half dose TPA systemically vs catheter directed therapy (not available at [facility]) or continue with heparin. Risk of systemic TPA was explained to the patient which includes but not limited to intracerebral hemorrhage, bleeding. Case was also discussed with patient's brother who is a surgeon himself. After answering all the questions inquiries of the patient along with his brother, plan was made to monitor the patient on heparin drip till tomorrow if there is no improvement in the heart rate or there is shortness of breath and hypoxia then plan will be to go ahead with TPA. Meanwhile patient also wants to know if isinger will be able to do CDT which is preferred then systemic TPA in patients with submassive PE. Given the patient has extensive PE we will get a lower extremity Doppler ultrasound as well to see if there is any residual clot left. If there is still residual clot in the left lower extremity given that the patient has significant burden of clot in the lungs consideration for retractable IVC filter will be given. Case was discussed in depth with Dr. Mercedes. Continue with heparin for the time being. O2 saturation as needed Patient will need anticoagulation for at least 3 to 6 months given that this was provoked. --Family history of factor V Leiden deficiency Patient was apparently checked and he was negative for it His brother is heterozygous carrier --Probable VIJAYA with morbid obesity May consider sleep study as an outpatient Nonurgent Please note the above document was generated using voice recognition software. It may contain grammatical, syntax or spelling errors. Acute cor pulmonale presence: unspecified Chronicity: acute Pulmonary embolism type: saddle Qualified Code(s): I26.92 - Saddle embolus of pulmonary artery without acute cor pulmonale (2) Tachycardia: History of Present Illness Attending Physician: Sasha Figueroa MD History of Present Illness 59-year-old male with past medical history of morbid obesity, family history of factor V Leiden deficiency(patient himself was tested and he said he was negative for factor V Leiden deficiency) recently had surgery of the left metatarsal bone for fracture at [facility]. He had a cast for approximately a month since then. He was not ambulating much because of the pain. Patient presented yesterday 01/22/2020 with complaints of shortness of breath, palpitations and mild left-sided chest pain. Patient had a CTA done in the ED which was positive for saddle PE. At the time of examination today while the patient has been on heparin drip for more than 12 hours patient stated that he is feeling better than yesterday. Denies palpitations, no dizziness, no headache, no nausea or vomiting. Shortness of breath is improved compared to presentation. No fever or chills. Patient denies any travel history. No cough, no hemoptysis Social history: Non-smoker, no illicit drug use, social alcohol. Works as a [employer] prior to the fracture. No history of asthma. Allergies Allergy/AdvReac Type Severity Reaction Status Date / Time No Known Allergies Allergy Unverified 01/22/20 20:48 Patient History Medical History Hematoma Incarcerated umbilical hernia SBO (small bowel obstruction) Umbilical hernia Social History Preferred Language: Ukrainian Communication Ability: Effective Beliefs That Will Affect Care: None Current Living Situation: Alone Feels Safe at Home: Yes Safety Concerns: Feels Safe At This Time Smoking Status: Never smoker Hx Alcohol Use: Yes Hx Substance Use: No Review of Systems Review of Systems: All systems reviewed & are unremarkable except as noted in HPI & below Physical Exam Physical Exam: Constitutional: No acute distress HEENT: EOMI, PERRLA, Mallampati 3 Respiratory system: Good air entry bilaterally, no wheeze, no rhonchi, no crackles CVS: S1-S2 positive, no murmurs or gallops, tachycardia Abdomen: Soft, nontender, nondistended, positive bowel sounds x4 Extremities: +2 pulses bilaterally radialis/ dorsalis pedis, no cyanosis, left leg in cast, right lower extremity no edema Neuro: Awake alert oriented x3 Psych: Normal mood and affect G/U: No Fuchs At the time of examination patient was saturating 96% on room air with heart rate of 99 at rest. Skin: no rashes, warm and dry Lymphatic: no cervical or axillary lymphadenopathy Results & Data Results & Data ([facility]) Vital Signs (Past 12 Hours) Vital Signs Temp Pulse Pulse Resp BP Pulse Ox 01/23/20 10:49 36.7 C 92 H 22 101/68 93 01/23/20 09:32 102 H 01/23/20 08:00 36.8 C 101 H 20 106/72 93 01/23/20 03:28 36.5 C 105 H 20 102/75 94 01/23/20 05:29 01/23/20 05:29 PG Care Time/CCT Total # of Minutes Spent Total Time Spent with Patient: Total time spent is greater than 50% in coordination of care (as documented) at patient's floor/unit and/or counseling patient: [place] [address] Inpt Consult Level 5 Patient Type New Diagnoses Pulmonary embolism I26.92 Acute cor pulmonale presence: unspecified Chronicity: acute Pulmonary embolism type: saddle Tachycardia R00.0
--- NOTE | 2020-01-24 14:55 | Electrocardiogram Report ---
Test Reason : Blood Pressure : / mmHG Vent. Rate : 118 BPM Atrial Rate : 118 BPM P-R Int : 178 ms QRS Dur : 124 ms QT Int : 322 ms P-R-T Axes : 045 -35 045 degrees QTc Int : 451 ms Poor data quality, interpretation may be adversely affected Sinus tachycardia with occasional Premature ventricular complexes Left axis deviation Anterior infarct , age undetermined Abnormal ECG When compared with ECG of 15-SEP-2017 01:34, Premature ventricular complexes are now Present Vent. rate has increased BY 48 BPM Anterior infarct is now Present Confirmed by Ar Wilks ([id number]) on 01/24/2020 2:55:26 PM Referred By: REFERRED SELF Confirmed By:Ar Wilks
== END 2020-01-23 16:21 | disposition short-term general hospital (02) | DRG 176 ==
LOC: ED 19:29 → 2S 21:45